=== PATIENT | female | born 1985 | race Caucasian/White ===

== ENCOUNTER 2020-06-13 22:13 | Emergency (ER) | payer SELFPAY ==
--- OUTSIDE RECORDS SUMMARY | 2020-06-13 22:14 | XMS REPORT | Continuity of Care Document ---
:1985 Author Organization [facility] t Address [address] [place] [address] Dr. Hong [address] [place] [id number] Care Team Providers Name Role Phone Unavailable Unavailable Unavailable Problems This patient has no known problems. Allergies, Adverse Reactions, Alerts This patient has no known allergies or adverse reactions. Medications This patient has no known medications. Procedures This patient has no known procedures. Results This patient has no known results.
--- NOTE | 2020-06-14 00:28 | ER ---
Nurse's Notes [facility] Name: Yana Syed Age: 35 yrs Sex: Female : 1985 Arrival Date: 06/13/2020 Time: 22:16 Bed 12 Private MD: Diagnosis: Right Distal Radius Fracture Presentation: 06/13 22:40 Chief complaint: Patient states: Reports falling on outstretched hands about 30 min lp1 ago; swelling to right wrist noted; denies any other injuries. Care prior to arrival: None. Mechanism of Injury: Fall from standing position. 22:40 Acuity: SHAHAB 4 lp1 22:40 Method Of Arrival: Ambulatory lp1 22:41 Coronavirus screen: Client denies travel out of the [place] in the last 14 days. At this lp1 time, the client does not indicate any symptoms associated with coronavirus-19. Ebola Screen: No symptoms or risks identified at this time. Initial Sepsis Screen: Does the patient meet any 2 criteria? No. Patient's initial sepsis screen is negative. Does the patient have a suspected source of infection? No. Patient's initial sepsis screen is negative. Risk Assessment: Do you want to hurt yourself or someone else? Patient reports no desire to harm self or others. Onset of symptoms was June 13, 2020 at 22:00. Triage Assessment: 22:43 General: Appears in no apparent distress. uncomfortable, Behavior is crying. Pain: lp1 Complains of pain in dorsal aspect of right wrist Pain currently is 9 out of 10 on a pain scale. Neuro: Level of Consciousness is awake, alert, obeys commands, Oriented to person, place, time, situation, Gait is steady. Cardiovascular: Patient's skin is warm and dry. Respiratory: Respiratory effort is even, unlabored. Derm: Skin is pink, warm \T\ dry. 22:44 General: Ice pack given to patient while in lobby. 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 - Social history:: Smoking status: Patient reports the use of cigarette tobacco products, smokes one-half pack cigarettes per day. Screenin:43 Abuse screen: Denies threats or abuse. Denies injuries from another. Nutritional lp1 screening: No deficits noted. Tuberculosis screening: No symptoms or risk factors identified. Fall Risk None identified. Assessment: 06/14 00:57 Reassessment: Patient is alert, oriented x 3, equal unlabored respirations, skin lp1 warm/dry/pink. SARA Leary at bedside to assess splint to right arm. Vital Signs: 06/13 22:41 BP 125 / 76; Pulse 105; Resp 18; Temp 99(TE); Pulse Ox 99% on R/A; Weight 63.5 kg (R); lp1 Height 5 ft. 0 in. (152.40 cm); Pain 9/10; 22:41 Body Mass Index 27.34 (63.50 kg, 152.40 cm) lp1 ED Course: 22:16 Patient arrived in ED. bp1 22:41 Triage completed. lp1 22:43 Arm band placed on. lp1 22:57 XRAY Wrist RIGHT 3 view In Process Unspecified. EDMS 23:15 Nicholas Brush PA is PHCP. cp 23:15 Ronny Jorgensen MD is Attending Physician. cp 06/14 00:16 Ilana Burch, RN is Primary Nurse. lp1 00:17 Jaya Godoy MD is Referral Physician. cp 00:55 Orthoglass splint: Sugar tong splint applied on right arm. oe 00:57 No provider procedures requiring assistance completed. Patient did not have IV access lp1 during this emergency room visit. 00:58 Sling applied to right arm. lp1 Administered Medications: 00:34 Drug: Hydrocodone-Acetaminophen (7.5 mg-325 mg) 1 tabs Route: PO; lp1 00:57 Follow up: Response: No adverse reaction lp1 00:34 Drug: Ibuprofen 800 mg Route: PO; lp1 00:57 Follow up: Response: No adverse reaction lp1 Outcome: 00:28 Discharge ordered by . cp 00:57 Discharged to home ambulatory, with friend. lp1 00:57 Condition: good 00:57 Discharge instructions given to patient, Instructed on discharge instructions, follow up and referral plans. medication usage, Demonstrated understanding of instructions, follow-up care, medications, splint care, Prescriptions given X 1. 00:58 Patient left the ED. lp1 Signatures: Dispatcher [employer] Ilana Martin RN RN lp1 Nicholas Brush PA PA cp Espinosa, Orlando oe [place]ia[place], Brittany bp1 Corrections: (The following items were deleted from the chart) 06/13 22:42 22:40 Chief complaint: Patient states: Reports falling on outstretched hands about 30 lp1 min ago; swelling to left wrist noted; denies any other injuries lp1
--- NOTE | 2020-06-14 00:28 | EDPHYS ---
Physician Documentation [facility] Name: Yana Syed Age: 35 yrs Sex: Female : 1985 Arrival Date: 06/13/2020 Time: 22:16 Bed 12 Private MD: ED Physician Ronny Jorgensen HPI: 06/13 23:20 This 35 yrs old Female presents to ER via Ambulatory with complaints of Fall cp Injury, Wrist Injury. 23:20 The patient or guardian reports decreased range of motion, injury, pain. The complaints cp affect the right wrist diffusely. 23:20 Context: resulted from a fall, off skateboard. Onset: The symptoms/episode cp began/occurred today. Modifying factors: the symptoms are aggravated by movement. Associated signs and symptoms: Pertinent positives: painful range of motion, Pertinent negatives: cyanosis distally, numbness distally. 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 - Social history:: Smoking status: Patient reports the use of cigarette tobacco products, smokes one-half pack cigarettes per day. ROS: 23:25 MS/extremity: Positive for deformity, pain, swelling, tenderness, of the right wrist, cp Negative for paresthesias. 23:25 Constitutional: Negative for fever. cp 23:25 Neck: Negative for pain with movement, pain at rest, stiffness. 23:25 Back: Negative for pain at rest, pain with movement. 23:25 Neuro: Negative for altered mental status, loss of consciousness. 23:25 All other systems are negative. Exam: 23:30 Constitutional: The patient appears in no acute distress, alert, awake, well developed, cp well nourished. 23:30 Head/Face: Normocephalic, atraumatic. cp 23:30 Cardiovascular: Rate: tachycardic. 23:30 Respiratory: the patient does not display signs of respiratory distress, Respirations: normal. 23:30 Musculoskeletal/extremity: Extremities: grossly normal except: noted in the dorsal aspect of right wrist: pain, swelling, tenderness, ROM: limited active range of motion due to pain, in the right wrist, limited passive range of motion due to pain, in the right wrist, Perfusion: the extremity is normally perfused throughout, Sensation intact. 23:30 Skin: injury, is not appreciated, intact with no open wounds to right wrist. Vital Signs: 22:41 BP 125 / 76; Pulse 105; Resp 18; Temp 99(TE); Pulse Ox 99% on R/A; Weight 63.5 kg (R); lp1 Height 5 ft. 0 in. (152.40 cm); Pain 9/10; 22:41 Body Mass Index 27.34 (63.50 kg, 152.40 cm) lp1 Procedures: 06/14 00:55 Splinting: Splint applied to right wrist using Orthoglass splint, sling, sugar tong cp type. applied by tech. Examined by me, post splint application: neurovascular intact, Patient tolerated well. MDM: 06/13 23:50 Patient medically screened. cp 06/14 00:00 Differential diagnosis: dislocation, open fracture, closed fracture, contusion, sprain. cp 00:27 Data reviewed: vital signs, nurses notes, radiologic studies, plain films, and as a cp result, I will discharge patient. 00:27 Test interpretation: by ED physician or midlevel provider: xrays of right wrist show cp nondisplaced distal right radius fracture. Counseling: I had a detailed discussion with the patient and/or guardian regarding: the historical points, exam findings, and any diagnostic results supporting the discharge/admit diagnosis, radiology results, the need for outpatient follow up, for definitive care, a orthopedic surgeon, to return to the emergency department if symptoms worsen or persist or if there are any questions or concerns that arise at home. Response to treatment: the patient's symptoms have markedly improved after treatment, and as a result, I will discharge patient. 00:35 ED course: review of [place] prescription monitor website: narcotic score 050, sedative cp score 020 and overdose risk score 120. 06/13 22:42 Order name: XRAY Wrist RIGHT 3 view lp1 06/13 23:15 Order name: Sugar Tong Forearm Splint; Complete Time: 00:58 cp 06/13 23:15 Order name: Sling; Complete Time: 00:58 cp Administered Medications: 00:34 Drug: Hydrocodone-Acetaminophen (7.5 mg-325 mg) 1 tabs Route: PO; lp1 00:57 Follow up: Response: No adverse reaction lp1 00:34 Drug: Ibuprofen 800 mg Route: PO; lp1 00:57 Follow up: Response: No adverse reaction lp1 Disposition: 01:00 Chart complete. cp 07:03 Co-signature as Attending Physician, Ronny Jorgensen MD. [email or web address] Disposition: 06/14/20 00:28 Discharged to Home. Impression: Right Distal Radius Fracture. - Condition is Stable. - Discharge Instructions: Wrist Fracture Treated With Immobilization. - Prescriptions for Tylenol- Codeine #3 300-30 mg Oral Tablet - take 2 tablets by ORAL route every 8-12 hours As needed; 20 tablet. - Medication Reconciliation Form, Thank You Letter, Antibiotic Education, Prescription Opioid Use form. - Follow up: Jaya Godoy MD; When: 2 - 3 days; Reason: Right Distal Radius Fracture. - Problem is new. - Symptoms have improved. Signatures: Dispatcher [employer] EDIlana Zafar RN RN 1 Nicholas Brush PA PA Ronny Chong MD MD 7 Corrections: (The following items were deleted from the chart) 00:58 00:28 06/14/2020 00:28 Discharged to Home. Impression: Right Distal Radius Fracture. lp1 Condition is Stable. Forms are Medication Reconciliation Form, Thank You Letter, Antibiotic Education, Prescription Opioid Use. Follow up: Jaya Godoy; When: 2 - 3 days; Reason: Right Distal Radius Fracture. Problem is new. Symptoms have improved. cp 19:56 06/13 23:20 The complaints affect the left wrist diffusely, cp cp
[2020-06-14] MEDS ORDERED: HYDROCODONE/APAP 7.5/325 MG TAB ONE (00:46)
[2020-06-14] MEDS ORDERED: IBUPROFEN 400 MG TAB ONE (00:47)
--- NOTE | 2020-06-14 09:23 | RAD REPORT ---
EXAM DESCRIPTION: RAD - Wrist Right 3 View - 06/13/2020 10:57 pm CLINICAL HISTORY: Pain;Swelling COMPARISON: No comparisons FINDINGS: Transverse fracture is seen in the distal radius, metaphyseal portion. No distraction or a ngulation deformity seen. No ulna fracture identified. There is no dislocation or periosteal reaction noted. No acute carpal bone injury. Soft tissue swelling is present primarily dorsum of the wrist. IMPRESSION: Transverse fracture distal right radius.
== END 2020-06-14 00:58 | disposition home or self-care (01) ==
LOC: ER 22:13
PROC: 2W3CX1Z Immobilization of Right Lower Arm using Splint (ICD-10-PCS; principal; 2020-06-14)
DX: S52.501A Unspecified fracture of the lower end of right radius, initial encounter for closed fracture (principal); V00.131A Fall from skateboard, initial encounter; Y93.9 Activity, unspecified; Y92.9 Unspecified place or not applicable; Z88.2 Allergy status to sulfonamides; F17.210 Nicotine dependence, cigarettes, uncomplicated
CPT/HCPCS: 99284

== ENCOUNTER 2023-12-05 15:06 | Emergency (ER) | payer SELFPAY ==
--- OUTSIDE RECORDS SUMMARY | 2023-12-05 15:15 | XMS REPORT | Continuity of Care Document ---
Author Name Unknown Address [address] [facility] [address] [place] [address] [facility] Address [address] [facility] [address] [place] [address] Care Team Providers Care World History Teacher Name Role Phone Willian KELLY, [facility] Primary Care Physician [phone] SYSTEM, PROVIDER NOT IN Attending Clinician Unav GHAZALA Sandoval Attending Clinician Unavailable GHAZALA ALEXANDER Attending Clinician Unavailable KADI GRIFFIN Attending Clinician UnavailKADI Mcclain Attending Clinician Unavaila NAINA Friedman Attending Clinician Unavailable ANGELES PANCHAL Attending Clinician ANGELES Rodriguez Attending Clinician Kathy Dejesus MD Attending Clinician [phone] KATHY SMITH Attending Clinician Unavailable Cinthia Castano MD Attending Clinician [phone] Unknown, Attending Attending Clinician UnavailCINTHIA Gustafson Attending Clinician Unavailable EMELY ARAUJO Attending Clinician Unavailable Emely Araujo MD Attending Clinician [phone] Doctor Unassigned, [place] Attending Clinician Fabio Irby MD Attending Clinician Darvin Yen MD Attending Clinician [phone] [facility] Attending Clinician Unavailable DARVIN YEN Attending Clinician Unavaila hoang Nurse, [facility] Attending Clinician Unavailable Pob, [facility] Main Attending Clinician UnavailKasi Patel PA-C Attending Clinician [phone] Pillo Singh MD Attending Clinician [phone] PILLO SINGH Attending Clinician Unavailable 2, [facility] Attending Clinician Unavailable Nakul Webster MD Attending Clinician [phone] KASI BOWSER Attending Clinician Unavailable RBADY GEE Attending Clinician UnavailKasandra Keller Attending Clinician [phone] KASANDRA BLACKMAN Attending Clinician Unavailable ANGELES PANCHAL Admitting Clinician EMELY Brewer Admitting Clinician Unavailable Emely Araujo MD Admitting Clinician [phone] KADI GRIFFIN Admitting Clinician Unavaila GHAZALA Turpin Admitting Clinician Unavailable Payers Payer Name Policy Type Policy Number Effective Date Expirati on Date Source [facility] MEDICAID [id number] 2020 00:00:00 [place] [id number] 2020 00:00:00 Problems Condition Name Condition Details Condition Category Status Onset Date Resolution Date Last Treatment Date Treating Clinician Comments Source Biliary colic Biliary colic Disease Active 9- 00:00: 00 [facility] Left ovarian cyst Left ovarian cyst Disease Active 9-13 00:00: 00 [facility] Lymphedema of genitalia Lymphedema of genitalia Disease Active 8- 00:00: 00 [facility] Exposure to syphilis Exposure to syphilis Disease Active 8-23 00:00: 00 [facility] Bacterial vaginal infection Bacterial vaginal infection Disease Active 4-11 00:00: 00 [facility] Urinary frequency Urinary frequency Disease Active 4-11 00:00: 00 [facility] Pain pelvic Pain pelvic Disease Active 3-20 00:00: 00 [facility] BMI 26.0-26.9, adult BMI 26.0-26.9, adult Disease Active 2023-0 1-20 00:00: 00 [facility] Abnormal urinalysis Abnormal urinalysis Disease Active 2021-05 0-27 00:00: 00 [facility] Dysuria Dysuria Disease Active 2021-05 0-27 00:00: 00 [facility] History of recurrent vaginal discharge History of recurrent vaginal discharge Disease Active 0 8-23 00:00: 00 [facility] Vaginal discharge Vaginal discharge Disease Active 0 5-02 00:00: 00 [facility] Antibiotic long-term use Antibiotic long-term use Disease Active 0 5-02 00:00: 00 [facility] Overweight (BMI 25.0-29.9) Overweight (BMI 25.0-29.9) Disease Active 0 5-02 00:00: 00 [facility] Screening for STD (sexually transmitte d disease) Screening for STD (sexually transmitte d disease) Disease Active 0 4-12 00:00: 00 [facility] Nexplanon in place Nexplanon in place Disease Active 2020-05 0-25 00:00: 00 [facility] Early syphilis, genital (primary) Early syphilis, genital (primary) Disease Active 8-05 00:00: 00 Overview: Formattin g of this note might be different from the original. on finger [facility] Skin lesion Skin lesion Disease Active 8-05 00:00: 00 Overview: Formattin g of this note might be different from the original. on finger [facility] Previous section Previous section Disease Active 6-29 00:00: 00 [facility] History of stillbirth History of stillbirth Disease Active 6-29 00:00: 00 [facility] Tobacco use disorder Tobacco use disorder Disease Active 6-29 00:00: 00 [facility] History of drug abuse History of drug abuse Disease Active 0 6-29 00:00: 00 [facility] History of anxiety History of anxiety Disease Active 6-29 00:00: 00 [facility] BMI 30.0-30.9, adult BMI 30.0-30.9, adult Disease Active 2014-05 0-14 00:00: 00 [facility] Allergies, Adverse Reactions, Alerts Allergy Name Allergy Type Status Severity Reaction(s) Onset Date Inactive Date Treating Clinician Comments Source Sulfa Antibiot ics - CLASS Propensi ty to adverse reaction to drug Active 05-30 00:00: 00 Guillaume Cabrera Sulfa (Sulfona mide Antibiot ics) Propensi ty to adverse reaction to drug Active 2 00:00: 00 Guillaume Sterling Rick SULFA (SULFONA MIDE ANTIBIOT ICS) Drug Class Active Hives 10-15 00:00: 00 [facility] Sulfa (Sulfona mide Antibiot ics) Propensi ty to adverse reaction s Active Hives 10-15 00:00: 00 [facility] Social History Social Habit Start Date Stop Date Quantity Comments Source History of tobacco use Cigarette Smoker [facility] Gender identity [facility] SDOH Alcohol Frequency [facility] History SDOH Alcohol Std Drinks [facility] History SDOH Alcohol Binge [facility] Alcoholic beverage intake 2023-11-09 00:00:00 2023-11-09 00:00:00 0 /d [facility] Alcohol intake 2023-09-22 00:00:00 2023-09-22 00:00:00 0 /d [facility] History of Social function 2023-03-28 00:00:00 2023-03-28 00:00:00 [facility] Cigarettes smoked current (pack per day) - Reported 2023-03-16 00:00:00 2023-03-16 00:00:00 [facility] Cigarette pack-years 2023-03-16 00:00:00 2023-03-16 00:00:00 [facility] Tobacco use and exposure 2023-03-16 00:00:00 2023-03-16 00:00:[address] [facility] Exposure to SARS-CoV-2 (event) 2022-08-27 00:00:00 2022-09-06 14:53:[address] [facility] Alcohol Comment 2020-11-24 00:00:00 2020-11-24 00:00:[address] [facility] Sex assigned at 1985 00:00:00 1985 00:00:00 [facility] Smoking Status Start Date Stop Date Source Smokes tobacco daily 2023-03-16 00:00:00 [facility] Medications Ordered Medication Name Filled Medication Name Start Date Stop Date Current Medication? Ordering Clinician Indication Dosage Frequency Signature (SIG) Comments Components Source Macrobid 100 mg capsule 11-20 00:00: 00 Yes 1mg Guillaume Cabrera fluconazole 150 mg tablet 11-10 00:00: 00 11-11 04:59 :00 Yes [id number] 150mg Take 1 tablet by mouth once now for 1 dose. [facility] bromphenira mine-pseudo ephedrine-D M 2 mg-30 mg-10 mg/5 mL oral syrup 10-02 00:00: 00 Yes 10mg/5 mL Guillaume Cabrera Augmentin 500 mg-125 mg tablet 10-01 00:00: 00 Yes 1mg Guillaume Cabrera Mucinex DM 30 mg-600 mg tablet,exte nded release 12 hr 10-01 00:00: 00 Yes 1mg Guillaume Cabrera diclofenac 1 % topical gel 00:00: 00 Yes % Guillaume Cabrera cyclobenzap rine 10 mg tablet 00:00: 00 Yes 1mg Guillaume Cabrera ibuprofen 800 mg tablet 00:00: 00 Yes 1mg Guillaume Cabrera FLUCONAZOLE 150MG 06-01 00:00: 00 Yes Guillaume Cabrera fluconazole (DIFLUCAN) 150 mg tablet 06-01 00:00: 00 06-02 05:59 :00 No [id number] 150mg Take 1 tablet by mouth once now for 1 dose. [facility] NITROFUR MON 100MG 2022-05 00:00: 00 Yes Guillaume Cabrera TAKE 1 CAPSULE TWICE DAILY. 2022-05 00:00: 00 10-02 00:00 :00 No 100 Guillaume Cabrera econazole nitrate 1 % cream 2022-05 00:00: 00 Yes [id number] Apply to area(s) daily. [facility] HYDROmorphO ne (DILAUDID) injection 0.4 mg 2022-05 18:49: 10 Yes .4mg 0.4 mg, Slow IV Push, Q15MIN PRN, 5 doses, Starting on Mon03/28/23 at 1349, Until Discontinu ed, Routine, Pain (scale 7-10), PACU
Us e approved by (Faculty): PACU USE -ANESTHESI A SERVICE-HY DROMORPHON E INJECTIONS [facility] FENTanyl PF (SUBLIMAZE (PF)) injection 25 mcg 2022-05 18:49: 10 Yes 25ug 25 mcg, Slow IV Push, Q5MIN PRN, 4 doses, Starting on Mon03/28/23 at 1349, Until Discontinu ed, Routine, Pain (scale 4-6), PACU [facility] ondansetron (ZOFRAN (PF)) injection 4 mg 2022-05 18:49: 10 Yes 4mg 4 mg, Slow IV Push, PRN, 1 dose, Starting on Mon03/28/23 at 1349, Until Discontinu ed, Routine, Nausea and Vomiting (N/V), PACU [facility] bupivacaine (preserv free) (SENSORCAIN E MPF) 0.25 % (2.5 mg/mL) 30 mL, lidocaine 1% (PF) (XYLOCAINE) 30 mL 2022-05 17:12: 00 03-28 19:01 :38 No PRN, Starting on Mon03/28/23 at 1212, Intra-op [facility] sodium chloride 0.9 % irrigation solution 2022-05 17:12: 00 03-28 19:01 :38 No PRN, Starting on Mon03/28/23 at 1212, Until Mon03/28/23 at 1401, Intra-op [facility] lactated ringers IV infusion 1,000 mL 2022-05 13:15: 00 03-28 13:16 :00 No 1000mL at 42 mL/hr, 1,000 mL, IV Infusion, ONCE, 1 dose, On Mon03/28/23 at 0815, Routine, DSU Pre-op [facility] traMADoL 50 mg tablet 2022-05 00:00: 00 04-05 05:59 :00 No [id number] 50mg Take 1 tablet by mouth every 8 (eight) hours as needed for Pain (scale 4-6) for up to 7 days. Indication s: acute pain [facility] TAKE ONE (1) TABLET(S) BY MOUTH EVERY MORNING. 2022-05 00:00: 00 Yes Guillaume Sterling Rick METRONIDAZO L 500MG 2022-05 00:00: 00 Yes [id number] Guillaume Hallie Cabrera fluconazole 200 mg tablet 2022-05 00:00: 00 Yes [id number] 200mg Take 1 tablet by mouth in the morning. [facility] metroNIDAZO LE 500 mg tablet 2022-05 00:00: 00 Yes [id number] 500mg Take 1 tablet by mouth every 12 (twelve) hours. [facility] omeprazole 20 mg capsule 02-04 00:00: 00 Yes TAKE ONE (1) CAPSULE(S) BY MOUTH EVERY MORNING. [facility] TAKE 1 CAPSULE EVERY MORNING. 02-02 00:00: 00 10-02 00:00 :00 No 20 Guillaume Cabrera METRONIDAZO L 500MG 11-16 00:00: 00 Yes Guillaume Cabrera metroNIDAZO LE 500 mg tablet 11-16 00:00: 00 11-24 04:59 :00 No [id number] 500mg Take 1 tablet by mouth every 12 (twelve) hours for 7 days. [facility] CIPROFLOXAC N 500MG 09-06 00:00: 00 Yes Guillaume Hallie Rick TERCONAZOL 3 80MG SUP 09-06 00:00: 00 Yes Guillaume Cabrera CLINDAMYCIN 2% VAG CRE 09-06 00:00: 00 Yes Guillaume Cabrera clindamycin 2 % cream 09-06 00:00: 00 09-14 04:59 :00 No [id number] 1{appli cator} Insert 1 Applicator into vagina at bedtime for 7 days. [facility] ciprofloxac in HCl (CIPRO) 500 mg tablet 09-06 00:00: 00 09-10 04:59 :00 No [id number] 500mg Take 1 tablet by mouth every 12 (twelve) hours for 3 days. [facility] terconazole 80 mg vaginal suppository 09-06 00:00: 00 09-10 04:59 :00 No [id number] 80mg Insert 1 Suppositor y into vagina at bedtime for 3 days. [facility] metroNIDAZO LE 500 mg tablet 08-15 00:00: 00 08-23 04:59 :00 No [id number] 500mg Take 1 tablet by mouth every 12 (twelve) hours for 7 days. [facility] penicillin g benzathine (BICILLIN L-A) injection 2.4 Million Units 06-27 16:15: 00 06-27 15:23 :00 No [id number] [address] [facility] METRONIDAZO L 500MG 06-17 00:00: 00 Yes [id number] Guillaume Cabrera metroNIDAZO LE 500 mg tablet 06-17 00:00: 00 06-25 05:59 :00 No [id number] 500mg Take 1 tablet by mouth every 12 (twelve) hours for 7 days. [facility] AZITHROMYCI N 250MG 05-30 00:00: 00 Yes [id number] Guillaume Cabrera TAKE FIVE (5) ML(S) BY MOUTH EVERY 4 TO 6 HOURS NEEDED. 05-30 00:00: 00 Yes Guillaume Cabrera DEXAMETHASO N 4MG 05-30 00:00: 00 Yes 4000 Guillaume Cabrera BENZONATATE 200MG 1-02 00:00: 00 Yes Guillaume Cabrera NITROFUR MON 100MG 2021-05 0- 00:00: 00 Yes Guillaume Cabrera FLUCONAZOLE 200MG 2021-05 0-27 00:00: 00 Yes Guillaume Cabrera fluconazole 200 mg tablet 2021-05 0- 00:00: 00 06-17 00:00 :00 No [id number] 200mg Take 1 tablet by mouth in the morning. [facility] Nitrofurant oin&Nit. Macrocryst (MACROBID) 100 mg capsule 2021-05 0 00:00: 00 04-01 04:59 :00 No [id number] 100mg Take 1 capsule by mouth in the morning and 1 capsule in the evening. Do all this for 7 days. [facility] CLEOCIN VAG 100MG OVU 02-15 00:00: 00 Yes Guillaume Cabrera metroNIDAZO LE 500 mg tablet 02-14 00:00: 00 06-17 00:00 :00 No [id number] 500mg Take 1 tablet by mouth every 12 (twelve) hours. [facility] clindamycin 100 mg vaginal suppository 02-14 00:00: 00 03-17 04:59 :00 No [id number] 100mg Insert 1 Suppositor y into vagina at bedtime for 30 days. [facility] HYDROXYZINE PAMOATE 25MG 8-18 00:00: 00 Yes Guillaume Cabrera PERMETHRIN 5% CRE 8-18 00:00: 00 Yes 5000 Guillaume Cabrera FLUCONAZOLE 150MG 8-18 00:00: 00 Yes Guillaume Cabrera VALACYCLOVI R HCL 1GM TAB 8-15 00:00: 00 Yes Guillaume Cabrera METRONIDAZO LE 500MG TAB 8-15 00:00: 00 Yes Guillaume Cabrera PREDNISONE 20MG 0 8-15 00:00: 00 Yes Guillaume Cabrera METRONIDAZO LE 500MG 7-12 00:00: 00 Yes Guillaume Cabrera FLUCONAZOLE 200MG - 00:00: 00 Yes Guillaume Cabrera fluconazole 200 mg tablet 12-06 00:00: 00 03-24 00:00 :00 No [id number] 200mg Take 1 tablet by mouth in the morning. [facility] fluconazole 200 mg tablet 09-27 00:00: 00 06-17 00:00 :00 No [id number] Take one tablet orally; daily for three days. May repeat 2 weeks following completion of antibiotic treatments . [facility] valACYclovi r (VALTREX) 1 gram tablet 09-07 00:00: 00 Yes [id number] Take one tablet by mouth daily [facility] ibuprofen 800 mg tablet 07-05 00:00: 00 06-17 00:00 :00 No [facility] amoxicillin 875 mg-marielos acosta clavulanate 125 mg tablet 09-24 00:00: 00 Yes 1mg Guillaume Cabrera ibuprofen 600 mg tablet 09-23 00:00: 00 Yes 1mg Guillaume Cabrera Bromfed DM 2 mg-30 mg-10 mg/5 mL oral syrup 09-23 00:00: 00 Yes 10mg/5 mL Guillaume Cabrera azithromyci n 250 mg tablet 2019-05 00:00: 00 Yes 12mg Guillaume Cabrera acyclovir 400 mg tablet 2019-05 00:00: 00 Yes 1mg Guillaume Cabrera nystatin 100,000 unit/mL oral suspension 2019-05 00:00: 00 Yes 10unit/ mL Guillaume Cabrera acyclovir 400 mg tablet 2019-05 0-05 00:00: 00 Yes 1mg Guillaume Cabrera triamcinolo ne acetonide 0.1 % dental paste 12-30 00:00: 00 Yes 1% Guillaume Cabrera prednisone 20 mg tablet 12-30 00:00: 00 Yes mg Guillaume Cabrera chlorhexidi ne gluconate 0.12 % mouthwash 12-30 00:00: 00 Yes 15% Guillaume Cabrera acyclovir 400 mg tablet 0 7-18 00:00: 00 Yes 1mg Guillaume Cabrera Macrobid 100 mg capsule 7-18 00:00: 00 Yes 1mg Guillaume Cabrera acyclovir 400 mg tablet 3-12 00:00: 00 Yes 1mg Guillaume Cabrera gabapentin 100 mg capsule 3-12 00:00: 00 Yes 1mg Guillaume Cabrera valacyclovi r 500 mg tablet 3-02 00:00: 00 Yes 2mg Guillaume Cabrera fluconazole 150 mg tablet 3-02 00:00: 00 Yes 2mg Guillaume Cabrera clindamycin HCl 300 mg capsule 3-02 00:00: 00 Yes 1mg Guillaume Cabrera metronidazo le 500 mg tablet 2-05 00:00: 00 Yes 1mg Guillaume Cabrera Tamiflu 75 mg capsule 1-10 00:00: 00 Yes 1mg Guillaume Cabrera Flagyl 500 mg tablet 1-03 00:00: 00 Yes 1mg Guillaume Cabrera Flagyl 500 mg tablet 2018-05 2-07 00:00: 00 Yes 1mg Guillaume Cabrera Valtrex 500 mg tablet 2-09 00:00: 00 Yes 1mg Guillaume Cabrera Immunizations Ordered Immunization Name Filled Immunization Name Date Status Comments Source TDAP 2015-07-23 00:00:[address] [facility] TDAP 2015-07-23 00:00:[address] [facility] TDAP 2015-07-23 00:00:[address] [facility] TDAP 2015-07-23 00:00:[address] [facility] TDAP 2015-07-23 00:00:[address] [facility] TDAP 2015-07-23 00:00:[address] [facility] TDAP 2015-07-23 00:00:[address] [facility] TDAP 2015-07-23 00:00:[address] [facility] TDAP 2015-07-23 00:00:[address] [facility] TDAP 2015-07-23 00:00:[address] [facility] TDAP 2015-07-23 00:00:[address] [facility] TDAP 2015-07-23 00:00:[address] [facility] TDAP 2015-07-23 00:00:[address] [facility] TDAP 2015-07-23 00:00:[address] [facility] TDAP 2015-07-23 00:00:[address] [facility] TDAP 2015-07-23 00:00:[address] [facility] TDAP 2015-07-23 00:00:[address] [facility] TDAP 2015-07-23 00:00:[address] [facility] TDAP 2015-07-23 00:00:[address] [facility] TDAP 2015-07-23 00:00:[address] [facility] TDAP 2015-07-23 00:00:[address] [facility] TDAP 2015-07-23 00:00:[address] [facility] TDAP 2015-07-23 00:00:[address] [facility] TDAP 2015-07-23 00:00:[address] [facility] TDAP 2015-07-23 00:00:[address] [facility] TDAP 2015-07-23 00:00:[address] [facility] TDAP 2015-07-23 00:00:[address] [facility] TDAP 2015-07-23 00:00:[address] [facility] TDAP 2015-07-23 00:00:[address] [facility] TDAP 2015-07-23 00:00:[address] [facility] TDAP 2015-07-23 00:00:[address] [facility] TDAP 2015-07-23 00:00:[address] [facility] TDAP 2015-07-23 00:00:[address] [facility] TDAP 2015-07-23 00:00:[address] [facility] TDAP 2015-07-23 00:00:[address] [facility] TDAP 2015-07-23 00:00:[address] [facility] TDAP 2015-07-23 00:00:[address] [facility] Td 2003-05-29 00:00:[address] [facility] Td 2003-05-29 00:00:[address] [facility] Td 2003-05-29 00:00:[address] [facility] Td 2003-05-29 00:00:[address] [facility] Td 2003-05-29 00:00:00 Completed [facility] TD, NOS 2003-05-29 00:00:00 Completed [facility] TD, NOS 2003-05-29 00:00:00 Completed [facility] TD, NOS 2003-05-29 00:00:[address] [facility] TD, NOS 2003-05-29 00:00:[address] [facility] TD, NOS 2003-05-29 00:00:[address] [facility] TD, NOS 2003-05-29 00:00:[address] [facility] TD, NOS 2003-05-29 00:00:[address] [facility] TD, NOS 2003-05-29 00:00:[address] [facility] TD, NOS 2003-05-29 00:00:[address] [facility] TD, NOS 2003-05-29 00:00:[address] [facility] TD, NOS 2003-05-29 00:00:[address] [facility] TD, NOS 2003-05-29 00:00:[address] [facility] TD, NOS 2003-05-29 00:00:00 Completed [facility] TD, NOS 2003-05-29 00:00:00 Completed [facility] TD, NOS 2003-05-29 00:00:00 Completed [facility] TD, NOS 2003-05-29 00:00:00 Completed [facility] TD, NOS 2003-05-29 00:00:00 Completed [facility] TD, NOS 2003-05-29 00:00:00 Completed [facility] TD, NOS 2003-05-29 00:00:[address] [facility] TD, NOS 2003-05-29 00:00:00 Completed [facility] TD, NOS 2003-05-29 00:00:00 Completed [facility] TD, NOS 2003-05-29 00:00:00 Completed [facility] TD, NOS 2003-05-29 00:00:00 Completed [facility] TD, NOS 2003-05-29 00:00:[address] [facility] TD, NOS 2003-05-29 00:00:[address] [facility] TD, NOS 2003-05-29 00:00:[address] [facility] TD, NOS 2003-05-29 00:00:[address] [facility] TD, NOS 2003-05-29 00:00:[address] [facility] TD, NOS 2003-05-29 00:00:[address] [facility] TD, NOS 2003-05-29 00:00:[address] [facility] TD, NOS 2003-05-29 00:00:[address] [facility] TD, NOS 2003-05-29 00:00:[address] [facility] TD, NOS Unknown Completed [facility] TDAP Unknown Completed [facility] TD, NOS Unknown Completed [facility] TDAP Unknown Completed [facility] TD, NOS Unknown Completed [facility] TDAP Unknown Completed [facility] TD, NOS Unknown Completed [facility] TDAP Unknown Completed [facility] TD, NOS Unknown Completed [facility] TDAP Unknown Completed [facility] TD, NOS Unknown Completed [facility] TDAP Unknown Completed [facility] TD, NOS Unknown Completed [facility] TDAP Unknown Completed [facility] TD, NOS Unknown Completed [facility] TDAP Unknown Completed [facility] TD, NOS Unknown Completed [facility] TDAP Unknown Completed [facility] TD, NOS Unknown Completed [facility] TDAP Unknown Completed [facility] TD, NOS Unknown Completed [facility] TDAP Unknown Completed [facility] TD, NOS Unknown Completed [facility] TDAP Unknown Completed [facility] TD, NOS Unknown Completed [facility] TDAP Unknown Completed [facility] TD, NOS Unknown Completed [facility] TDAP Unknown Completed [facility] TD, NOS Unknown Completed [facility] TDAP Unknown Completed [facility] TD, NOS Unknown Completed [facility] TDAP Unknown Completed [facility] TD, NOS Unknown Completed [facility] TDAP Unknown Completed [facility] TD, NOS Unknown Completed [facility] TDAP Unknown Completed [facility] TD, NOS Unknown Completed [facility] TDAP Unknown Completed [facility] TD, NOS Unknown Completed [facility] TDAP Unknown Completed [facility] TD, NOS Unknown Completed [facility] TDAP Unknown Completed [facility] TD, NOS Unknown Completed [facility] TDAP Unknown Completed [facility] TD, NOS Unknown Completed [facility] TDAP Unknown Completed [facility] TD, NOS Unknown Completed [facility] [facility] TDAP Unknown Completed [facility] TD, NOS Unknown Completed [facility] TDAP Unknown Completed [facility] TD, NOS Unknown Completed [facility] TDAP Unknown Completed [facility] TD, NOS Unknown Completed [facility] TDAP Unknown Completed [facility] TD, NOS Unknown Completed [facility] TDAP Unknown Completed [facility] TD, NOS Unknown Completed [facility] TDAP Unknown Completed [facility] TD, NOS Unknown Completed [facility] TDAP Unknown Completed [facility] TD, NOS Unknown Completed [facility] TDAP Unknown Completed [facility] Vital Signs Vital Name Observation Time Observation Value Comments S ource Systolic blood pressure 2023-11-09 18:36:00 117 mm[Hg] [facility] Diastolic blood pressure 2023-11-09 18:36:00 73 mm[Hg] [facility] Heart rate 2023-11-09 18:36:00 61 /min [facility] Body temperature 2023-11-09 18:36:[address] [facility] Respiratory rate 2023-11-09 18:36:00 18 /min [facility] Body height 2023-11-09 18:36:00 152.4 cm [facility] Body weight 2023-11-09 18:36:00 65.59 kg [facility] BMI 2023-11-09 18:36:00 28.24 kg/m2 [facility] Systolic blood pressure 2023-09-22 15:25:00 117 mm[Hg] [facility] Diastolic blood pressure 2023-09-22 15:25:00 82 mm[Hg] [facility] Heart rate 2023-09-22 15:25:00 62 /min Un[facility] Body temperature 2023-09-22 15:25:[address] [facility] Respiratory rate 2023-09-22 15:25:00 16 /min [facility] Body height 2023-09-22 15:25:00 152.4 cm [facility] Body weight 2023-09-22 15:25:00 66.044 kg [facility] BMI 2023-09-22 15:25:00 28.44 kg/m2 [facility] Oxygen saturation in Arterial blood by Pulse oximetry 2023-09-22 15:25:00 98 /min [facility] Systolic blood pressure 2023-05-30 15:28:00 124 mm[Hg] [facility] Diastolic blood pressure 2023-05-30 15:28:00 84 mm[Hg] [facility] Heart rate 2023-05-30 15:28:00 89 /min [facility] Body temperature 2023-05-30 15:28:[address] [facility] Respiratory rate 2023-05-30 15:28:00 18 /min [facility] Body weight 2023-05-30 15:28:00 61.236 kg [facility] BMI 2023-05-30 15:28:00 26.37 kg/m2 [facility] Systolic blood pressure 2023-04-16 16:41:00 110 mm[Hg] [facility] Diastolic blood pressure 2023-04-16 16:41:00 74 mm[Hg] [facility] Heart rate 2023-04-16 16:41:00 90 /min [facility] Body temperature 2023-04-16 16:41:[address] [facility] Respiratory rate 2023-04-16 16:41:00 18 /min [facility] Body height 2023-04-16 16:41:00 152.4 cm [facility] Body weight 2023-04-16 16:41:00 61.689 kg [facility] BMI 2023-04-16 16:41:00 26.56 kg/m2 [facility] Oxygen saturation in Arterial blood by Pulse oximetry 2023-04-16 16:41:00 100 /min [facility] Systolic blood pressure 2023 16:48:00 122 mm[Hg] [facility] Diastolic blood pressure 2023 16:48:00 80 mm[Hg] [facility] Heart rate 2023 16:48:00 86 /min [facility] Body temperature 2023 16:48:[address] [facility] Respiratory rate 2023 16:48:00 18 /min [facility] Body height 2023 16:48:00 152.4 cm [facility] Body weight 2023 16:48:00 61.689 kg [facility] BMI 2023 16:48:00 26.56 kg/m2 [facility] Oxygen saturation in Arterial blood by Pulse oximetry 2023 16:48:00 100 /min [facility] Systolic blood pressure 2023-03-28 19:36:00 118 mm[Hg] [facility] Diastolic blood pressure 2023-03-28 19:36:00 64 mm[Hg] [facility] Heart rate 2023-03-28 19:36:00 70 /min [facility] Respiratory rate 2023-03-28 19:36:00 12 /min [facility] Oxygen saturation in Arterial blood by Pulse oximetry 2023-03-28 19:36:00 98 /min [facility] Body temperature 2023-03-28 18:23:[address] [facility] Body height 2023-03-16 19:15:00 152.4 cm [facility] Body weight 2023-03-16 19:15:00 61.689 kg [facility] BMI 2023-03-16 19:15:00 26.56 kg/m2 [facility] Systolic blood pressure 2023-03-28 13:11:00 115 mm[Hg] [place] [facility] Diastolic blood pressure 2023-03-28 13:11:00 72 mm[Hg] [facility] Heart rate 2023-03-28 13:11:00 73 /min [facility] Body temperature 2023-03-28 13:11:[address] [facility] Respiratory rate 2023-03-28 13:11:00 17 /min [facility] Oxygen saturation in Arterial blood by Pulse oximetry 2023-03-28 13:11:00 100 /min [facility] Body height 2023-03-16 19:15:00 152.4 cm [facility] Body weight 2023-03-16 19:15:00 61.689 kg [facility] BMI 2023-03-16 19:15:00 26.56 kg/m2 [facility] Systolic blood pressure 2023-03-08 14:31:00 139 mm[Hg] [facility] Diastolic blood pressure 2023-03-08 14:31:00 85 mm[Hg] [facility] Heart rate 2023-03-08 14:31:00 64 /min Unive [facility] Respiratory rate 2023-03-08 14:31:00 18 /min [facility] Body height 2023-03-08 14:31:00 152.4 cm [facility] Body weight 2023-03-08 14:31:00 62.596 kg [facility] BMI 2023-03-08 14:31:00 26.95 kg/m2 [facility] Systolic blood pressure 2023-02-16 13:11:00 125 mm[Hg] [facility] Diastolic blood pressure 2023-02-16 13:11:00 79 mm[Hg] [facility] Heart rate 2023-02-16 13:11:00 77 /min [facility]ive [facility] Body temperature 2023-02-16 13:11:[address] [facility] Body height 2023-02-16 13:11:00 152.4 cm [facility] Body weight 2023-02-16 13:11:00 61.508 kg [facility] BMI 2023-02-16 13:11:00 26.48 kg/m2 [facility] Oxygen saturation in Arterial blood by Pulse oximetry 2023-02-16 13:11:00 100 /min [facility] Systolic blood pressure 2023-02-13 18:30:00 126 mm[Hg] [facility] Diastolic blood pressure 2023-02-13 18:30:00 88 mm[Hg] [facility] Heart rate 2023-02-13 18:30:00 81 /min [facility] Body temperature 2023-02-13 18:30:[address] [facility] Respiratory rate 2023-02-13 18:30:00 18 /min [facility] Body height 2023-02-13 18:30:00 152.4 cm [facility] Body weight 2023-02-13 18:30:00 62.188 kg [facility] BMI 2023-02-13 18:30:00 26.78 kg/m2 [facility] Oxygen saturation in Arterial blood by Pulse oximetry 2023-02-13 18:30:00 99 /min room air [facility] Systolic blood pressure 2023-02-07 15:40:00 131 mm[Hg] [facility] Diastolic blood pressure 2023-02-07 15:40:00 84 mm[Hg] [facility] Heart rate 2023-02-07 15:40:00 65 /min [facility] Body temperature 2023-02-07 15:40:[address] [facility] Respiratory rate 2023-02-07 15:40:00 16 /min [facility] Body height 2023-02-07 15:40:00 152.4 cm [facility] Body weight 2023-02-07 15:40:00 61.553 kg [facility] BMI 2023-02-07 15:40:00 26.50 kg/m2 [facility] Oxygen saturation in Arterial blood by Pulse oximetry 2023-02-07 15:40:00 100 /min [facility] Systolic blood pressure 2023-01-18 16:32:00 129 mm[Hg] [facility] Diastolic blood pressure 2023-01-18 16:32:00 84 mm[Hg] [facility] Heart rate 2023-01-18 16:32:00 69 /min Unive [facility] Body temperature 2023-01-18 16:32:[address] [facility] Respiratory rate 2023-01-18 16:32:00 18 /min [facility] Body height 2023-01-18 16:32:00 152.4 cm [facility] Body weight 2023-01-18 16:32:00 62.596 kg [facility] BMI 2023-01-18 16:32:00 26.95 kg/m2 [facility] Systolic blood pressure 2022-12-06 15:39:00 125 mm[Hg] [facility] Diastolic blood pressure 2022-12-06 15:39:00 85 mm[Hg] [facility] Heart rate 2022-12-06 15:39:00 77 /min Unive [facility] Body temperature 2022-12-06 15:39:[address] [facility] Respiratory rate 2022-12-06 15:39:00 16 /min [facility] Body height 2022-12-06 15:39:00 152.4 cm [facility] Body weight 2022-12-06 15:39:00 61.825 kg [facility] BMI 2022-12-06 15:39:00 26.62 kg/m2 [facility] Oxygen saturation in Arterial blood by Pulse oximetry 2022-12-06 15:39:00 99 /min [facility] Systolic blood pressure 2022-11-16 15:28:00 105 mm[Hg] [facility] Diastolic blood pressure 2022-11-16 15:28:00 73 mm[Hg] [facility] Heart rate 2022-11-16 15:28:00 87 /min [facility] 2022-11-16 15:28:00 18 /min [facility] Body height 2022-11-16 15:28:[address] [facility] Body weight 2022-11-16 15:28:00 61.236 kg [facility] BMI 2022-11-16 15:28:00 26.37 kg/m2 [facility] Res[facility] 2022-09-06 20:09:00 17 /min [facility] Body height 2022-09-06 20:09:[address] [facility] Body weight 2022-09-06 20:09:00 61.689 kg [facility] BMI 2022-09-06 20:09:00 26.56 kg/m2 [facility] Systolic blood pressure 2022-09-06 20:09:00 118 mm[Hg] [facility] Diastolic blood pressure 2022-09-06 20:09:00 83 mm[Hg] [facility] Heart rate 2022-09-06 20:09:00 64 /min Unive [facility] Body temperature 2022-09-06 20:09:[address] [facility] Systolic blood pressure 2022-08-15 13:04:00 115 mm[Hg] [facility] Diastolic blood pressure 2022-08-15 13:04:00 80 mm[Hg] [facility] Heart rate 2022-08-15 13:04:00 78 /min [facility] Respiratory rate 2022-08-15 13:04:00 18 /min [facility] Body height 2022-08-15 13:04:00 152.4 cm [facility] Body weight 2022-08-15 13:04:00 62.959 kg [facility] BMI 2022-08-15 13:04:00 27.11 kg/m2 [facility] Oxygen saturation in Arterial blood by Pulse oximetry 2022-08-15 13:04:00 98 /min [facility] Systolic blood pressure 2022-06-27 15:23:00 123 mm[Hg] [facility] Diastolic blood pressure 2022-06-27 15:23:00 79 mm[Hg] [facility] Heart rate 2022-06-27 15:23:00 92 /min Unive [facility] Body temperature 2022-06-27 15:23:[address] [facility] Respiratory rate 2022-06-27 15:23:00 18 /min [facility] Body height 2022-06-27 15:23:00 152.4 cm [facility] Body weight 2022-06-27 15:23:00 62.143 kg [facility] BMI 2022-06-27 15:23:00 26.76 kg/m2 [facility] Systolic blood pressure 2022-06-17 15:05:00 110 mm[Hg] [facility] Diastolic blood pressure 2022-06-17 15:05:00 78 mm[Hg] [facility] Heart rate 2022-06-17 15:05:00 73 /min Unive [facility] Body temperature 2022-06-17 15:05:[address] [facility] Respiratory rate 2022-06-17 15:05:00 16 /min [facility] Body height 2022-06-17 15:05:00 152.4 cm [facility] Body weight 2022-06-17 15:05:00 62.234 kg [facility] BMI 2022-06-17 15:05:00 26.80 kg/m2 [facility] Oxygen saturation in Arterial blood by Pulse oximetry 2022-06-17 15:05:00 100 /min [facility] Systolic blood pressure 2022-03-24 13:12:00 127 mm[Hg] [facility] Diastolic blood pressure 2022-03-24 13:12:00 85 mm[Hg] [facility] Heart rate 2022-03-24 13:12:00 74 /min Unive [facility] Respiratory rate 2022-03-24 13:12:00 18 /min [facility] Body height 2022-03-24 13:12:00 152.4 cm [facility] Body weight 2022-03-24 13:12:00 62.143 kg [facility] BMI 2022-03-24 13:12:00 26.76 kg/m2 [facility] BP Systolic 2023-11-21 09:12:00 117 mm[Hg] Step hen F Rick BP Diastolic 2023-11-21 09:12:00 83 mm[Hg] Andrae phen F Rick Weight Measured 2023-11-21 09:12:00 145.00 pounds Guillaume F Rick Height Measured 2023-11-21 09:12:00 60.00 inches Guillaume F Rick Body Temperature 2023-11-21 09:12:00 98.20 degrees Guillaume F Rick Heart Rate 2023-11-21 09:12:00 70.00 /min Kelsea en F Rick Respiratory Rate 2023-11-21 09:12:00 18.00 /min Guillaume F Rick BP Systolic 2023-09-29 13:39:00 116 mm[Hg] Step hen F Rick BP Diastolic 2023-09-29 13:39:00 84 mm[Hg] Andrae phen F Rick Weight Measured 2023-09-29 13:39:00 149.00 pounds Guillaume F Rick Height Measured 2023-09-29 13:39:00 60.00 inches Guillaume F Rick Body Temperature 2023-09-29 13:39:00 98.20 degrees Guillaume F Rick Heart Rate 2023-09-29 13:39:00 65.00 /min Kelsea en F Rick Respiratory Rate 2023-09-29 13:39:00 16.00 /min Guillaume F Rick BP Systolic 2023-08-24 10:00:00 118 mm[Hg] Step hen F Rick BP Diastolic 2023-08-24 10:00:00 83 mm[Hg] Andrae phen F Rick Weight Measured 2023-08-24 10:00:00 140.60 pounds Guillaume F Rick Height Measured 2023-08-24 10:00:00 60.00 inches Guillaume F Rick Body Temperature 2023-08-24 10:00:00 98.30 degrees Guillaume F Rick Heart Rate 2023-08-24 10:00:00 61.00 /min Kelsea en F Rick Respiratory Rate 2023-08-24 10:00:00 16.00 /min Guillaume F Rick BP Systolic 2023-07-27 10:55:00 116 mm[Hg] Step hen F Rick BP Diastolic 2023-07-27 10:55:00 70 mm[Hg] Andrae phen F Rick Weight Measured 2023-07-27 10:55:00 139.20 pounds Guillaume F Rick Height Measured 2023-07-27 10:55:00 60.00 inches Guillaume F Rick Body Temperature 2023-07-27 10:55:00 98.20 degrees Guillaume F Rick Heart Rate 2023-07-27 10:55:00 71.00 /min Kelsea en F Rick Respiratory Rate 2023-07-27 10:55:00 Guillaume F Rick BP Systolic 2023-05-08 10:34:00 108 mm[Hg] Step hen F Rick BP Diastolic 2023-05-08 10:34:00 76 mm[Hg] Andrae phen F Rick Weight Measured 2023-05-08 10:34:00 137.00 pounds Guillaume F Rick Height Measured 2023-05-08 10:34:00 60.00 inches Guillaume F Rick Body Temperature 2023-05-08 10:34:00 97.40 degrees Guillaume F Rick Heart Rate 2023-05-08 10:34:00 95.00 /min Kelsea en F Rick Respiratory Rate 2023-05-08 10:34:00 Guillaume F Rick BP Systolic 2023-04-25 13:39:00 119 mm[Hg] Step hen F Rick BP Diastolic 2023-04-25 13:39:00 79 mm[Hg] Andrae phen F Rick Weight Measured 2023-04-25 13:39:00 137.00 pounds Guillaume F Rick Height Measured 2023-04-25 13:39:00 50.00 inches Guillaume F Rick Body Temperature 2023-04-25 13:39:00 97.40 degrees Guillaume F Rick Heart Rate 2023-04-25 13:39:00 73.00 /min Kelsea en F Rick Respiratory Rate 2023-04-25 13:39:00 Guillaume F Rick BP Systolic 2023-02-09 09:31:00 117 mm[Hg] Step hen F Rick BP Diastolic 2023-02-09 09:31:00 78 mm[Hg] Andrae phen F Rick Weight Measured 2023-02-09 09:31:00 135.00 pounds Guillaume F Rick Height Measured 2023-02-09 09:31:00 50.00 inches Guillaume F Rick Body Temperature 2023-02-09 09:31:00 98.40 degrees Guillaume F Rick Heart Rate 2023-02-09 09:31:00 79.00 /min Kelsea en F Rick Respiratory Rate 2023-02-09 09:31:00 19.00 /min Guillaume F Rick BP Systolic 2023-02-02 09:54:00 103 mm[Hg] Step hen F Rick BP Diastolic 2023-02-02 09:54:00 71 mm[Hg] Andrae phen F Rick Weight Measured 2023-02-02 09:54:00 135.80 pounds Guillaume F Rick Height Measured 2023-02-02 09:54:00 50.00 inches Guillaume F Rick Body Temperature 2023-02-02 09:54:00 98.30 degrees Guillaume F Rick Heart Rate 2023-02-02 09:54:00 81.00 /min Kelsea en F Rick Respiratory Rate 2023-02-02 09:54:00 18.00 /min Guillaume F Rick BP Systolic 2022-11-14 10:51:00 117 mm[Hg] Step hen F Rick BP Diastolic 2022-11-14 10:51:00 87 mm[Hg] Andrae phen F Rick Weight Measured 2022-11-14 10:51:00 138.20 pounds Guillaume F Rick Height Measured 2022-11-14 10:51:00 50.00 inches Guillaume F Rick Body Temperature 2022-11-14 10:51:00 98.30 degrees Guillaume F Rick Heart Rate 2022-11-14 10:51:00 118.00 /min Step hen F Rick Respiratory Rate 2022-11-14 10:51:00 18.00 /min Guillaume F Rick BP Systolic 2022-01-13 09:07:00 104 mm[Hg] Step hen F Rick BP Diastolic 2022-01-13 09:07:00 69 mm[Hg] Andrae phen F Rick Weight Measured 2022-01-13 09:07:00 134.40 pounds Guillaume Cabrera Height Measured 2022-01-13 09:07:00 50.00 inches Guillaume Cabrera Body Temperature 2022-01-13 09:07:00 97.30 degrees Guillaume Cabrera Heart Rate 2022-01-13 09:07:00 74.00 /min Kelsea en F Rick Respiratory Rate 2022-01-13 09:07:00 Guillaumeselena Cabrera BP Systolic 2022-01-10 09:56:00 130 mm[Hg] Step hen F Rick BP Diastolic 2022-01-10 09:56:00 91 mm[Hg] Andrae phen F Rick Weight Measured 2022-01-10 09:56:00 134.00 pounds Guillaume Cabrera Height Measured 2022-01-10 09:56:00 50.00 inches Guillaume Cabrera Body Temperature 2022-01-10 09:56:00 98.00 degrees Guillaume Cabrera Heart Rate 2022-01-10 09:56:00 104.00 /min Step hen F Rick Respiratory Rate 2022-01-10 09:56:00 Guillaume Cabrera Procedures Procedure Date / Time Performed Performing Clinician Source POCT URINALYSIS W/O SPECIFIC GRAVITY 2023-11-09 00:00:[address] [facility] US PELVIS COMPLETE WITH TRANSVAGINAL 2023-06-07 15:32:[address] [facility] LAPAROSCOPIC CHOLECYSTECTOMY 2023-03-28 16:16:[address] [facility] POCT TEST 2023-03-28 13:03[facility] 2023-03-28 13:03:00 Itz Culp [facility] DAY SURGERY - ADC 2023-03-28 05:01:00 Doctor Kisha ssigned, [place] [facility] INSURANCE CORRESPONDENCE 2023-03-03 05:01:00 Doc tor Unassigned, [place] [facility] REFERRAL- REQUEST/RESPONSE 2023-03-03 05:01:00 Mahesh quezada Unassigned, [place] [facility] INSURANCE CORRESPONDENCE 2023-03-03 05:01:00 Doc tor Unassigned, [place] [facility] REFERRAL- REQUEST/RESPONSE 2023-03-03 05:01:00 Mahesh quezada Unassigned, [place] AUTHORIZATION TO RELEASE PHI TO [facility] 2023-02-16 05:01:00 Doctor Unassigned, [place] [facility] US PELVIS COMPLETE WITH TRANSVAGINAL 2023-02-03 15:45:[address] [facility] [id number] Ultrasound, Abdominal, Real Time With Image Documentation; Complete 2023-02-02 00:00:00 Guillaume Cabrera CBC (INCLUDES DIFF/PLT)-Q 2023-01-19 14:35:[address] [facility] POCT URINALYSIS W/O SPECIFIC GRAVITY 2023-01-18 00:00:[address] [facility] ASSIGNMENT OF BENEFITS 2022-11-16 15:14:54 Docto r Unassmarcelo, [place] [facility] POCT URINALYSIS W/O SPECIFIC GRAVITY 2022-11-16 00:00:[address] [facility] POCT URINALYSIS W/O SPECIFIC GRAVITY 2022-09-06 00:00:00 Kadi Griffin [facility] PATIENT FINANCIAL POLICY 2022-08-15 12:53:28 Doctor Unassigned, [place] [facility] POCT URINALYSIS W/O SPECIFIC GRAVITY 2022-03-24 00:00:[address] [facility] DISCLOSURE AND CONSENT, MEDICAL AND SURGICAL PROCEDURES 2022-02-07 05:01:00 Doctor Unassigned, [place] SCANNED LAB RESULTS 2022-01-18 05:01:00 Doctor Tisha salazar, [place] [facility] Encounters Start Date/Time End Date/Time Encounter Type Admission Type Attending Clinicians Care Facility Care Department Encounter ID Source 2021-03-29 11:59:39 Emergency [facility] [id number] [facility] 2021-03-05 15:00:41 Outpatient SYSTEM, PROVIDER YOVANI PINA [id number] MD Alida jean-baptiste 2023-12-15 08:30:00 2023-12-15 08:30:00 Outpatient R ALEXANDER GHAZALA ALEXANDER GHAZALA [facility] [id number] [facility] 2023-12-11 10:00:00 2023-12-11 10:00:00 Outpatient R KADI GRIFFINMIRAKADI FELTON [facility] [id number] [facility] 2023-12-11 10:00:00 2023-12-11 10:00:00 Outpatient R NAINA ANDERSON [facility] [id number] [facility] 2023-11-21 10:00:00 2023-11-21 10:00:00 Outpatient R ROMERO-CONCHITA S ANGELES ROMERO-CONCHITA SSUKHDEEPANGELES [facility] [id number] [facility] 2023-11-21 08:52:26 2023-11-21 08:52:26 Outpatient [facility] [id number] Guillaume Cabrera 2023-11-21 00:00:00 2023-11-21 00:00:00 Outpatient Visit [facility] [id number] Guillaume Cabrera 2023-11-11 00:00:00 2023-11-11 11:34:36 Case Management AleksKathy painting [facility] [id number] [facility] 2023-11-10 09:00:00 2023-11-10 09:00:00 Outpatient R NAINA ANDERSON [facility] [id number] [facility] 2023-11-09 13:30:00 2023-11-09 14:05:37 Outpatient R ADILENE KATHY [facility] [id number] [facility] 2023-11-09 13:30:00 2023-11-09 14:05:37 Office Visit AleksKathy painting [place] [id number] [facility] 2023-09-29 13:39:08 2023-09-29 13:39:08 Outpatient [facility] [id number] Guillaume Cabrera 2023-09-29 00:00:00 2023-09-29 00:00:00 Outpatient Visit [facility] [id number] Guillaume Cabrera 2023-09-22 14:00:00 2023-09-22 14:00:00 Office Visit Ghazala Alexander [facility] [id number] 134 [id number] [facility] 2023-09-22 14:00:00 2023-09-22 11:59:47 Outpatient R GHAZALA ALEXANDER [facility] [id number] [facility] 2023-08-24 09:50:56 2023-08-24 09:50:56 Outpatient [facility] [id number] Guillaume Cabrera 2023-07-27 10:52:32 2023-07-27 10:52:32 Outpatient [facility] [id number] Guillaume Cabrera 2023-06-07 09:01:06 2023-06-07 23:59:00 Outpatient R ANGELES JOHANSEN MARISOL [facility] [id number] [facility] 2023-06-07 09:01:06 2023-06-07 23:59:00 Hospital Encounter Angeles Johansen [facility] [id number] [facility] 2023-06-01 00:00:00 2023-06-01 00:00:00 Case Management Angeles Johansen [facility] [id number] 134 [id number] [facility] 2023-05-30 09:30:00 2023-05-30 09:38:55 Outpatient R LICO Anthony, ANGELES SUKHDEEP JOHANSENSOL [facility] [id number] [facility] 2023-05-30 09:30:00 2023-05-30 09:38:55 Office Visit Sukhdeep Johansensol [facility] 1.2840.114 350.1.13.10 4.2.7.2.686 [id number] 134 [id number] [facility] 2023-05-30 00:00:00 2023-05-30 00:00:[address] [facility] 1.0.114 350.1.13.10 4.2.7.2.686 [id number] 134 [id number] [facility] 2023-05-08 10:27:03 2023-05-08 10:27:03 Outpatient [facility] [id number] Guillaume Sterling Rick 2023-05-04 00:00:00 2023-05-04 00:00:[address] [facility] 1.2840.114 350.1.13.10 4.2.7.2.686 [id number] 134 [id number] [facility] 2023-04-25 13:34:12 2023-04-25 13:34:12 Outpatient [facility] [id number] Guillaume F Rick 2023-04-16 10:20:00 2023-04-16 10:40:00 Urgent Care Cinthia Castano Unknown, Attending [facility] DEBORAH JUAREZ?[facility] 1.2840.114 350.1.13.10 4.2.7.2.686 [id number] [facility] 2023-04-16 10:20:00 2023-04-16 10:20:00 Outpatient R CINTHIA CASTANO [facility] [id number] [facility] 2023 10:45:00 2023 12:31:24 Outpatient R EMELY ARAUJO [facility] [id number] [facility] 2023 10:45:00 2023 12:31:24 Office Visit Emely Araujo [facility] 1.840.114 350.1.13.10 4.2.7.2.686 [id number] [facility] 2023-03-28 08:01:00 2023-03-28 14:49:00 Outpatient R EMELY ARAUJO [facility] [id number] [facility] 2023-03-28 08:01:00 2023-03-28 14:49:00 Hospital Encounter Emely Araujo [facility] [place] 1.840.114 350.1.13.10 4.2.7.2.686 [id number] [facility] 2023-03-28 09:45:00 2023-03-28 12:30:00 Surgery Emely Araujo [facility] [place] 1.2840.114 350.1.13.10 4.2.7.2.686 [id number] [facility] 2023-03-28 00:00:00 2023-03-28 00:00:00 Orders Only Doctor Unassigned, [place] [facility] 1.2840.114 350.1.13.10 4.2.7.2.686 [id number] [id number] [facility] 2023-03-08 09:30:00 2023-03-08 09:38:07 Outpatient R KADI GRIFFIN CHERYAL [facility] [id number] [facility] 2023-03-08 09:30:00 2023-03-08 09:38:07 Office Visit Kadi Griffin [facility] 1.2840.114 350.1.13.10 4.2.7.2.686 [id number] 134 [id number] [facility] 2023-03-02 00:00:00 2023-03-02 00:00:00 Telephone Emely Araujo [facility] 1.2840.114 350.1.13.10 4.2.7.2.686 [id number] [facility] 2023-02-21 00:00:00 2023-02-21 00:00:00 Telephone Emely Araujo [facility] 1.2.114 350.1.13.10 4.2.7.2.686 [id number] [facility] 2023-02-16 08:30:00 2023-02-16 08:59:38 Outpatient R EMELY ARAUJO [facility] [id number] [facility] 2023-02-16 08:30:00 2023-02-16 08:59:38 Office Visit Emely Araujo [facility] 1.20.114 350.1.13.10 4.2.7.2.686 [id number] [facility] 2023-02-16 00:00:00 2023-02-16 00:00:00 Orders Only Doctor Unassigned, [place] [facility] 1.2840.114 350.1.13.10 4.2.7.2.686 [id number] [id number] [facility] 2023-02-14 00:00:00 2023-02-14 00:00:00 Patient Secure Msg LarsFabio [facility] 1.2.840.114 350.1.13.10 4.2.7.2.686 [id number] [facility] 2023-02-13 14:00:00 2023-02-13 15:00:00 Office Visit Fabio Sousa [facility] 1.2.840.114 350.1.13.10 4.2.7.2.686 [id number] 089 [id number] [facility] 2023-02-13 12:45:00 2023-02-13 13:00:00 Medical Billing Supervisor Visit [facility] Farshad [facility] 1.2.840.114 350.1.13.10 4.2.7.2.686 [id number] [facility] 2023-02-13 12:45:00 2023-02-13 12:45:00 Outpatient R DARVIN YEN [facility] [id number] [facility] 2023-02-07 10:45:00 2023-02-07 10:48:30 Outpatient R KADI GRIFFIN CHERYAL [facility] [id number] [facility] 2023-02-07 10:45:00 2023-02-07 10:48:30 Office Visit Kadi Griffin [facility] 1.2840.114 350.1.13.10 4.2.7.2.686 [id number] 134 [id number] [facility] 2023-02-03 09:38:22 2023-02-03 23:59:00 Outpatient R KADI GRIFFIN CHERYAL [facility] [id number] [facility] 2023-02-03 09:38:22 2023-02-03 23:59:00 Hospital Encounter Tritschler, [facility] 1.2.840.114 350.1.13.10 4.2.7.2.686 [id number] [facility] 2023-02-02 15:00:43 2023-02-02 15:00:43 Outpatient [facility] [id number] Guillaume Cabrera 2023-01-24 16:30:00 2023-01-24 16:30:00 Out[facility] [id number] [facility] 2023-01-23 00:00:00 2023-01-23 00:00:00 [facility] 1.2.840.114 350.1.13.10 4.2.7.2.686 [id number] 134 [id number] [facility] 2023-01-20 00:00:00 2023-01-20 00:00:00 [facility] 1.2.840.114 350.1.13.10 4.2.7.2.686 [id number] 134 [id number] [facility] 2023-01-20 00:00:00 2023-01-20 00:00:00 [facility] 1.2.840.114 350.1.13.10 4.2.7.2.686 [id number] 134 [id number] [facility] 2023-01-19 00:00:00 2023-01-19 00:00:00 Orders Only [facility] 1.2.840.114 350.1.13.10 4.2.7.2.686 [id number] [facility] 2023-01-18 11:30:00 2023-01-18 11:46:37 Outpatient R KADI [facility]RIFFIN [facility] [id number] [facility] 2023-01-18 11:30:00 2023-01-18 11:46:37 [facility] 1.2.840.114 350.1.13.10 4.2.7.2.686 [id number] 134 [id number] [facility] 2022-12-06 11:00:00 2022-12-06 11:00:00 [facility] 1.2.840.114 350.1.13.10 4.2.7.2.686 [id number] 134 [id number] [facility] 2022-12-06 11:00:00 2022-12-06 10:57:28 Outpatient R KARLIKADI WELSH KARLIIZABELLAKAMILAHKADI FELTON [facility] [id number] [facility] 2022-11-16 10:30:00 2022-11-16 10:35:13 Outpatient R KARLIKADI WELSH KARLIIZABELLAKAMILAHKADI FELTON [facility] [id number] [facility] 2022-11-16 10:30:00 2022-11-16 10:35:13 [facility] 1.2.840.114 350.1.13.10 4.2.7.2.686 [id number] 134 [id number] [facility] 2022-11-16 00:00:00 2022-11-16 00:00:00 Orders Only Doctor Unassigned, [place] [facility] 1.2.840.114 350.1.13.10 4.2.7.2.686 [id number] [facility] 2022-11-15 00:00:00 2022-11-15 00:00:00 [facility] 1.2.840.114 350.1.13.10 4.2.7.2.686 [id number] 134 [id number] [facility] 2022-11-14 10:46:55 2022-11-14 10:46:55 Outpatient [facility] [id number] Guillaume Cabrera 2022-09-08 08:00:00 2022-09-08 08:00:00 Outpatient R KADI GRIFFIN CHERYAL [facility] [id number] [facility] 2022-09-06 15:00:00 2022-09-06 15:16:27 Outpatient R KADI GRIFFIN CHERYAL [facility] [id number] [facility] 2022-09-06 15:00:00 2022-09-06 15:16:27 Office Visit KarliKadi welsh [facility] 1..114 350.1.13.10 4.2.7.2.686 [id number] 134 [id number] [facility] 2022-08-15 08:00:00 2022-08-15 08:18:24 Outpatient R KADI GRIFFIN CH[facility] [id number] [facility] 2022-08-15 08:00:00 2022-08-15 08:18:24 [facility] 1..114 350.1.13.10 4.2.7.2.686 [id number] 134 [id number] [facility] 2022-08-15 00:00:00 2022-08-15 00:00:00 Orders Only Doctor Unassigned, [place] [facility] 1..114 350.1.13.10 4.2.7.2.686 [id number] [facility] 2022-07-01 00:00:00 2022-07-01 00:00:00 Patient Secure Msg Doctor Unassigned, [place] [facility] 1.2.840.114 350.1.13.10 4.2.7.2.686 [id number] [facility] 2022-06-27 09:00:00 2022-06-27 09:34:47 Nurse Visit Nurse, [facility] 1.2840.114 350.1.13.10 4.2.7.2.686 [id number] 134 [id number] [facility] 2022-06-27 09:00:00 2022-06-27 09:00:00 Out[facility] [id number] [facility] 2022-06-27 00:00:00 2022-06-27 00:00:00 [facility] 1.840.114 350.1.13.10 4.2.7.2.686 [id number] 134 [id number] [facility] 2022-06-22 00:00:00 2022-06-22 00:00:00 [facility]phone [facility] 1.2840.114 350.1.13.10 4.2.7.2.686 [id number] 134 [id number] [facility] 2022-06-22 00:00:00 2022-06-22 00:00:00 Patient Secure Msg Doctor Unassigned, [place] [facility] 1.2840.114 350.1.13.10 4.2.7.2.686 [id number] 134 [id number] [facility] 2022-06-21 11:45:00 2022-06-21 12:00:00 Medical Billing Supervisor Visit Pob, Adc Lab Main Karliizabellakena [facility] 1.2840.114 350.1.13.10 4.2.7.2.686 [id number] [facility] 2022-06-21 11:45:00 2022-06-21 11:45:00 Outpatient R KADI GRIFFIN CHERY[facility] [id number] [facility] 2022-06-17 09:00:00 2022-06-17 09:25:31 Outpatient R KADI GRIFFIN [facility] [id number] [facility] 2022-06-17 09:00:00 2022-06-17 09:25:31 [facility] 1.2.840.114 350.1.13.10 4.2.7.2.686 [id number] 134 [id number] [facility] 2022-05-31 09:04:49 2022-05-31 09:04:49 Outpatient [facility] [id number] Guillaume Cabrera 2022-03-24 08:00:00 2022-03-24 08:17:26 Outpatient R KADI GRIFFIN CHERYAL [facility] [id number] [facility] 2022-03-24 08:00:00 2022-03-24 08:17:26 Office Visit Kadi Griffin [facility] 1.2.840.114 350.1.13.10 4.2.7.2.686 [id number] 134 [id number] [facility] 2022-03-22 09:00:00 2022-03-22 09:00:00 Outpatient R KADI GRIFFIN CHERYAL [facility] [id number] [facility] 2022-03-02 11:00:00 2022-03-02 11:00:00 Outpatient R KADI GRIFFINKAMILAHKADI FELTON [facility] [id number] [facility] 2022-02-22 00:00:00 2022-02-22 00:00:00 Patient Secure Ghazala Bermudez [facility] 1..840.114 350.1.13.10 4.2.7.2.686 [id number] 134 [id number] [facility] 2022-02-14 00:00:00 2022-02-14 00:00:00 Case Management Kasi Bowser [facility] 1.2840.114 350.1.13.10 4.2.7.2.686 [id number] 134 [id number] [facility] 2022-02-07 09:00:00 2022-02-07 09:51:26 Outpatient R BENJAMIN GHAZALA [facility] [id number] [facility] 2022-02-07 09:00:00 2022-02-07 09:51:26 Office Visit Ghazala Alexander [facility] 1.2840.114 350.1.13.10 4.2.7.2.686 [id number] 134 [id number] [facility] 2022-02-07 09:00:00 2022-02-07 09:51:26 Outpatient R BENJAMIN GHAZALA [facility] [id number] [facility] 2022-02-07 00:00:00 2022-02-07 00:00:00 Orders Only Doctor Unassigned, [place] [facility] 1.84.114 350.1.13.10 4.2.7.2.686 [id number] [id number] [facility] 2022-02-03 00:00:00 2022-02-03 00:00:00 Telephone TriKadi welsh [facility] 1.2114 350.1.13.10 4.2.7.2.686 [id number] 134 [id number] [facility] 2022-02-02 00:00:00 2022-02-02 00:00:00 Telephone TriKadi welsh [facility] 1.2.840.114 350.1.13.10 4.2.7.2.686 [id number] 134 [id number] [facility] 2022-01-28 00:00:00 2022-01-28 00:00:00 Telephone Kadi Griffin [facility] 1.2.840.114 350.1.13.10 4.2.7.2.686 [id number] 134 [id number] [facility] 2022-01-18 09:30:00 2022-01-18 10:00:00 Office Visit Gaby [facility] 1.2.840.114 350.1.13.10 4.2.7.2.686 [id number] 134 [id number] [facility] 2022-01-18 09:30:00 2022-01-18 09:30:00 Outpatient R BUCKYPURNIMA KADI [facility] [id number] [facility] 2022-01-18 00:00:00 2022-01-18 00:00:00 Orders Only Doctor Unassigned, [place] [facility] 1.2.840.114 350.1.13.10 4.2.7.2.686 [id number] [id number] [facility] 2021-12-31 00:00:00 2021-12-31 00:00:00 Case Management Karlianitha [facility] 1.2.840.114 350.1.13.10 4.2.7.2.686 [id number] 134 [id number] [facility] 2021-12-29 11:30:00 2021-12-29 12:09:14 [facility] 1.2.840.114 350.1.13.10 4.2.7.2.686 [id number] 134 [id number] [facility] 2021-12-29 11:30:00 2021-12-29 12:09:14 Outpatient R KADI GRIFFIN CHERYAL [facility] [id number] [facility] 2021-12-29 11:30:00 2021-12-29 11:30:00 Outpatient R KADI GRIFFIN CHERYAL [facility] [id number] [facility] 2021-12-07 00:00:00 2021-12-07 00:00:00 Case Management KarliKadi welsh [facility] 1.84.114 350.1.13.10 4.2.7.2.686 [id number] 134 [id number] [facility] 2021-12-06 11:00:00 2021-12-06 11:24:28 Office Visit BuckyKadi felton [facility] 1..114 350.1.13.10 4.2.7.2.686 [id number] 134 [id number] [facility] 2021-12-06 11:00:00 2021-12-06 11:24:28 Outpatient R KADI GRIFFIN CHERYAL [facility] [id number] [facility] 2021-12-06 11:00:00 2021-12-06 11:00:00 Outpatient R KADI GRIFFIN [facility] [id number] [facility] 2021-12-01 09:15:00 2021-12-01 09:15:00 Outpatient R KARLIKADI WELSH [facility] [id number] [facility] 2021-11-18 10:00:00 2021-11-18 10:15:00 Nurse Visit Nurse, Francisco [facility] Pillo Singh [facility] 1..840.114 350.1.13.10 4.2.7.2.686 [id number] 134 [id number] [facility] 2021-11-18 10:00:00 2021-11-18 10:00:00 Outpatient PILLO BOLDEN [facility] [id number] [facility] 2021-11-11 10:00:00 2021-11-11 10:28:47 Nurse Visit Nurse, [facility] 1.840.114 350.1.13.10 4.2.7.2.686 [id number] 134 [id number] [facility] 2021-11-11 10:00:00 2021-11-11 10:00:00 Outpatient Ananth SINGH PILLO [facility] [id number] [facility] 2021-11-05 11:00:00 2021-11-05 16:37:32 Nurse Visit Nurse, [facility] 1.84.114 350.1.13.10 4.2.7.2.686 [id number] 134 [id number] [facility] 2021-11-05 11:00:00 2021-11-05 11:00:00 Out[facility] [id number] [facility] 2021-11-03 00:00:00 2021-11-03 00:00:00 Telephone Karliizabellakena [facility] 1..114 350.1.13.10 4.2.7.2.686 [id number] 134 [id number] [facility] 2021-11-02 10:45:00 2021-11-02 11:00:00 Medical Billing Supervisor Visit Pob, Adc Lab Main [facility] 1.84.114 350.1.13.10 4.2.7.2.686 [id number] [facility] 2021-11-02 10:45:00 2021-11-02 10:45:00 Outpatient R KADI GRIFFIN CHERYAL [facility] [id number] [facility] 2021-11-02 10:45:00 2021-11-02 10:45:00 Outpatient R KADI GRIFFIN CHERY[facility] [id number] [facility] 2021-10-12 11:30:00 2021-10-12 11:43:00 Office Visit Karlianitha [facility] 1..114 350.1.13.10 4.2.7.2.686 [id number] 134 [id number] [facility] 2021-10-12 11:30:00 2021-10-12 11:43:00 Outpatient R KADI GRIFFIN [facility] [id number] [facility] 2021-10-12 11:30:00 2021-10-12 11:30:00 Outpatient R KADI GRIFFIN [facility] [id number] [facility] 2021-10-07 00:00:00 2021-10-07 00:00:00 Refill Karlianitha [facility] 1..114 350.1.13.10 4.2.7.2.686 [id number] 134 [id number] [facility] 2021-09-29 10:30:00 2021-09-29 10:45:00 Nurse Visit Nurse, aron [facility] Ghazala [facility] 1.20.114 350.1.13.10 4.2.7.2.686 [id number] 134 [id number] [facility] 2021-09-29 10:30:00 2021-09-29 10:30:00 Outpatient R [facility] [id number] [facility] 2021-09-29 10:30:00 2021-09-29 10:30:00 Outpatient R GHAZALA ALEXANDER [facility] [id number] [facility] 2021-09-27 10:30:00 2021-09-27 10:54:36 [facility] 1.2840.114 350.1.13.10 4.2.7.2.686 [id number] 134 [id number] [facility] 2021-09-27 10:30:00 2021-09-27 10:54:36 Outpatient R GABY CYDNEYREJI [facility] [id number] [facility] 2021-09-27 10:30:00 2021-09-27 10:30:00 Outpatient R KADI [facility]RIFFIN [facility] [id number] [facility] 2021-09-22 11:15:00 2021-09-22 11:36:50 Nurse Visit Nurse, Francisco [facility] 1.20.114 350.1.13.10 4.2.7.2.686 [id number] 134 [id number] [facility] 2021-09-22 11:15:00 2021-09-22 11:15:00 Outpatient GHAZALA PIERRE [facility] [id number] [facility] 2021-09-15 11:45:00 2021-09-15 12:00:00 Nurse Visit Nurse, Francisco [facility] 1.20.114 350.1.13.10 4.2.7.2.686 [id number] 134 [id number] [facility] 2021-09-15 11:45:00 2021-09-15 11:45:00 Outpatient R GHAZALA ALEXANDER [facility] [id number] [facility] 2021-09-09 00:00:00 2021-09-09 00:00:[address] [facility] 1.2.840.114 350.1.13.10 4.2.7.2.686 [id number] 134 [id number] [facility] 2021-09-07 14:30:00 2021-09-07 14:45:00 Medical Billing Supervisor Visit Pob, Adc Lab Main [facility]illo [facility] 1.2.840.114 350.1.13.10 4.2.7.2.686 [id number] [facility] 2021-09-07 14:30:00 2021-09-07 14:45:00 Medical Billing Supervisor Visit Po, Adc Lab Main Francisco Pillo [facility] 1.2.840.114 350.1.13.10 4.2.7.2.686 [id number] [facility] 2021-09-07 14:30:00 2021-09-07 14:30:00 Outpatient R PILLO SINGH [facility] [id number] [facility] 2021-09-07 14:30:00 2021-09-07 14:30:00 Outpatient R PILLO SINGH [facility] [id number] [facility] 2021-09-07 13:00:00 2021-09-07 13:30:00 Office Visit Buckypurnima Kadi [facility] 1.2840.114 350.1.13.10 4.2.7.2.686 [id number] 134 [id number] [facility] 2021-09-07 13:00:00 2021-09-07 13:00:00 Outpatient R KADI GRIFFIN CHERYAL [facility] [id number] [facility] 2021-09-07 13:00:00 2021-09-07 13:00:00 Outpatient R KARLIIZABELLAKAMILAHKADI FELTON BUCKYKADI FELTON [facility] [id number] [facility] 2021-09-06 00:00:00 2021-09-06 00:00:00 Telephone Ghazala Alexander [facility] 1..840.114 350.1.13.10 4.2.7.2.686 [id number] 134 [id number] [facility] 2021-04-01 10:58:51 2021-04-01 23:59:00 Outpatient R GHAZALA ALEXANDER [facility] [id number] [facility] 2021-04-01 10:58:51 2021-04-01 23:59:00 Hospital Encounter Ghazala Alexander [facility] 1..840.114 350.1.13.10 4.2.7.2.686 [id number] [facility] 2021-04-01 00:00:00 2021-04-01 00:00:00 Orders Only Doctor Unassigned, [place] [facility] 1.2840.114 350.1.13.10 4.2.7.2.686 [id number] [facility] 2021-03-30 00:00:00 2021-03-30 00:00:00 Case Management Ghazala Alexander [facility] 1..840.114 350.1.13.10 4.2.7.2.686 [id number] 134 [id number] [facility] 2021-03-25 10:15:00 2021-03-25 10:53:38 Outpatient R ALEXANDERBRETEN [facility] [id number] [facility] 2021-03-25 10:15:00 2021-03-25 10:53:38 Outpatient R BENJAMIN [facility] [id number] [facility] 2021-03-25 10:13:40 2021-03-25 10:53:38 Office Visit Ghazala Alexander [facility] 1.2.840.114 350.1.13.10 4.2.7.2.686 [id number] 134 [id number] [facility] 2021-03-25 00:00:00 2021-03-25 00:00:00 Orders Only Doctor Unassigned, [place] [facility] 1.2840.114 350.1.13.10 4.2.7.2.686 [id number] [facility] 2021-03-22 08:58:05 2021-03-22 09:28:05 Office Visit Ghazala Alexander [facility] 1.2.840.114 350.1.13.10 4.2.7.2.686 [id number] [facility] 2021-03-22 09:00:00 2021-03-22 09:00:00 Outpatient R GHAZALA ALEXANDER [facility] [id number] [facility] 2021-03-18 09:40:39 2021-03-18 10:16:54 Office Visit Ghazala Alexander [facility] Building 1.2.840.114 350.1.13.10 4.2.7.2.686 [id number] [facility] 2021-03-18 09:30:00 2021-03-18 09:30:00 Outpatient R GHAZALA ALEXANDER [facility] [id number] [facility] 2021-03-17 09:02:23 2021-03-17 09:17:23 Medical Billing Supervisor Visit 2, Adc [facility] Ghazala Alexander [facility] Building 1.2.840.114 350.1.13.10 4.2.7.2.686 [id number] [facility] 2021-03-17 09:00:00 2021-03-17 09:00:00 Outpatient R [facility] [id number] [facility] 2021-03-17 00:00:00 2021-03-17 00:00:00 Case Management Ghazala Alexander [facility] Building 1.2.840.114 350.1.13.10 4.2.7.2.686 [id number] [facility] 2021-03-15 10:00:00 2021-03-15 23:59:00 Hospital Encounter Ghazala Alexander [facility] 1.2.840.114 350.1.13.10 4.2.7.2.686 [id number] [facility] 2021-03-15 00:00:00 2021-03-15 00:00:00 Outpatient R GHAZALA ALEXANDER [facility] [id number] [facility] 2021-03-15 00:00:00 2021-03-15 00:00:00 Telephone Ghazala Alexander [facility] Building 1.2.840.114 350.1.13.10 4.2.7.2.686 [id number] [facility] 2021-03-10 09:28:38 2021-03-10 14:42:17 Medical Billing Supervisor Visit 2, Adc Lab Ghazala Alexander [facility] Building 1.2.840.114 350.1.13.10 4.2.7.2.686 [id number] [facility] 2021-03-10 09:30:00 2021-03-10 09:30:00 Outpatient R [facility] [id number] [facility] 2021-03-10 00:00:00 2021-03-10 00:00:00 Telephone Ghazala Alexander [facility] Building 1.2.840.114 350.1.13.10 4.2.7.2.686 [id number] [facility] 2021-03-09 10:29:21 2021-03-09 11:22:02 Office Visit Ghazala Alexander [facility] [place] [facility] 1.2.840.114 350.1.13.10 4.2.7.2.686 [id number] [facility] 2021-03-09 10:30:00 2021-03-09 10:30:00 Outpatient R GHAZALA ALEXANDER [facility] [id number] [facility] 2021-03-08 00:00:00 2021-03-08 00:00:00 Telephone Ghazala Alexander [facility] nal Building 1.2.840.114 350.1.13.10 4.2.7.2.686 [id number] 134 [id number] [facility] 2021-03-03 13:26:29 2021-03-03 13:58:26 [facility] [facility] 1.2.840.114 350.1.13.10 4.2.7.2.686 [id number] [facility] 2021-03-03 13:30:00 2021-03-03 13:30:00 Outpatient R GHAZALA ALEXANDER [facility] [id number] [facility] 2021-03-03 09:28:34 2021-03-03 09:43:34 Medical Billing Supervisor Visit 2, [facility] 1.2.840.114 350.1.13.10 4.2.7.2.686 [id number] [facility] 2021-02-24 10:44:37 2021-02-24 14:22:17 Office Visit Ghazala Alexander [facility] Building 1.2.840.114 350.1.13.10 4.2.7.2.686 [id number] [facility] 2021-02-24 10:30:00 2021-02-24 10:30:00 Outpatient R GHAZALA ALEXANDER [facility] [id number] [facility] 2021-02-24 00:00:00 2021-02-24 00:00:00 Telephone Ghazala Alexander [facility] 1.2.840.114 350.1.13.10 4.2.7.2.686 [id number] [facility] 2021-02-24 00:00:00 2021-02-24 00:00:00 Telephone [facility] 1.2.840.114 350.1.13.10 4.2.7.2.686 [id number] [facility] 2021-02-18 09:33:47 2021-02-18 09:48:47 Medical Billing Supervisor Visit 2, Adc Lab [facility]ala [facility] 1.2.840.114 350.1.13.10 4.2.7.2.686 [id number] [facility] 2021-02-18 09:30:00 2021-02-18 09:30:00 Outpatient R [facility] [id number] [facility] 2021-02-18 00:00:00 2021-02-18 00:00:00 Case [facility] 1.2.840.114 350.1.13.10 4.2.7.2.686 [id number] [facility] 2021-02-10 09:26:59 2021-02-10 09:41:59 Medical Billing Supervisor Visit 2, Adc Lab [facility]azala [facility] 1.2840.114 350.1.13.10 4.2.7.2.686 [id number] [facility] 2021-02-10 09:30:00 2021-02-10 09:30:00 Outpatient R [facility] [id number] [facility] 2021-02-10 00:00:00 2021-02-10 00:00:00 Telephone [facility]azala [facility] 1.2.840.114 350.1.13.10 4.2.7.2.686 [id number] [facility] 2021-02-05 00:00:00 2021-02-05 00:00:00 Telephone Ghazala Alexander [facility] nal Building 1.2.840.114 350.1.13.10 4.2.7.2.686 [id number] 134 [id number] [facility] 2021-02-03 09:35:47 2021-02-03 09:50:47 Medical Billing Supervisor Visit 2, Adc Lab Ghazala Alexander [facility] Building 1.2.840.114 350.1.13.10 4.2.7.2.686 [id number] [facility] 2021-02-03 09:30:00 2021-02-03 09:30:00 Outpatient R GHAZALA ALEXANDER [facility] [id number] [facility] 2021-01-30 00:00:00 2021-01-30 00:00:00 Case Management Ghazala Alexander [facility] Building 1.2.840.114 350.1.13.10 4.2.7.2.686 [id number] [facility] 2021-01-28 09:54:40 2021-01-28 11:15:00 Office Visit Ghazala Alexander [facility] Building 1.2.840.114 350.1.13.10 4.2.7.2.686 [id number] [facility] 2021-01-28 10:00:00 2021-01-28 10:00:00 Outpatient R GHAZALA ALEXANDER [facility] [id number] [facility] 2021-01-27 09:37:07 2021-01-27 09:52:07 Medical Billing Supervisor Visit 2, Adc Lab Ghazala Alexander [facility] Building 1.2.840.114 350.1.13.10 4.2.7.2.686 [id number] [facility] 2021-01-27 09:30:00 2021-01-27 09:30:00 Outpatient R [facility] [id number] [facility] 2021-01-27 00:00:00 2021-01-27 00:00:00 Telephone Ghazala Alexander [facility] 1.2.840.114 350.1.13.10 4.2.7.2.686 [id number] 134 [id number] [facility] 2021-01-21 00:00:00 2021-01-21 00:00:00 Telephone Ghazala Alexander [facility] Building 1.2.840.114 350.1.13.10 4.2.7.2.686 [id number] [facility] 2021-01-20 08:51:22 2021-01-20 09:06:22 Medical Billing Supervisor Visit 2, Adc Lab Nakul Webster [facility] Building 1.2.840.114 350.1.13.10 4.2.7.2.686 [id number] [facility] 2021-01-20 09:00:00 2021-01-20 09:00:00 Outpatient R [facility] [id number] [facility] 2021-01-13 10:00:00 2021-01-13 10:58:34 Outpatient R GHAZALA ALEXANDER [facility] [id number] [facility] 2021-01-13 10:00:00 2021-01-13 10:00:00 Outpatient R [facility] [id number] [facility] 2021-01-13 09:30:00 2021-01-13 09:30:00 Outpatient R [facility] [id number] [facility] 2021-01-06 09:00:00 2021-01-06 09:00:00 Outpatient R GHAZALA ALEXANDER [facility] [id number] [facility] 2020-12-31 10:15:00 2020-12-31 10:15:00 Outpatient R GHAZALA ALEXANDER [facility] [id number] [facility] 2020-12-29 15:45:00 2020-12-29 15:45:00 Outpatient R GHAZALA ALEXANDER [facility] [id number] [facility] 2020-12-28 10:45:00 2020-12-28 10:45:00 Outpatient R GHAZALA ALEXANDER [facility] [id number] [facility] 2020-12-22 15:15:00 2020-12-22 15:15:00 Outpatient R GHAZALA ALEXANDER [facility] [id number] [facility] 2020-12-21 11:00:00 2020-12-21 11:00:00 Outpatient R GHAZALA ALEXANDER [facility] [id number] [facility] 2020-12-16 10:15:00 2020-12-16 10:15:00 Outpatient R GHAZALA ALEXANDER [facility] [id number] [facility] 2020-12-15 13:15:00 2020-12-15 13:15:00 Outpatient R GHAZALA ALEXANDER [facility] [id number] [facility] 2020-12-09 00:00:00 2020-12-09 00:00:00 Outpatient R GHAZALA ALEXANDER [facility] [id number] [facility] 2020-12-07 09:00:00 2020-12-07 09:00:00 Outpatient R FRANDY BOWSERCY [facility] [id number] [facility] 2020-12-02 11:30:00 2020-12-02 11:30:00 Outpatient R BENJAMIN GHAZALA [facility] [id number] [facility] 2020-11-30 10:45:00 2020-11-30 10:45:00 Outpatient R [facility] [id number] [facility] 2020-11-26 11:30:00 2020-11-26 11:30:00 Outpatient R [facility] [id number] [facility] 2020-11-24 10:00:00 2020-11-24 10:00:00 Outpatient R BENJAMIN GHAZALA [facility] [id number] [facility] 2020-07-27 14:45:46 2020-07-27 23:59:00 Outpatient R BRADY GEE [facility] [id number] [facility] 2020-06-24 13:59:27 2020-06-24 14:14:27 Office Visit [facility]upesh [facility] Specialisa Fajardo 1..840.114 350.1.13.10 4.2.7.2.686 [id number] [facility] 2020-06-24 14:00:00 2020-06-24 14:00:00 Outpatient R KASANDRA BLACKMAN [facility] [id number] [facility] 2020-06-24 00:00:00 2020-06-24 00:00:00 Orders Only Doctor Unassigned, [place] [facility] 1..840.114 350.1.13.10 4.2.7.2.686 [id number] [facility] 2020-06-17 14:04:23 2020-06-17 15:20:53 Office Visit Rupesh [facility] Surgical Specialti laura Fajardo 1..840.114 350.1.13.10 4.2.7.2.686 [id number] [facility] 2020-06-17 14:30:00 2020-06-17 14:30:00 Outpatient KASANDRA BRYANT [facility] [id number] [facility] 2020-06-17 00:00:00 2020-06-17 00:00:00 Orders Only Doctor Unassigned, [place] [facility] 1..840.114 350.1.13.10 4.2.7.2.686 [id number] [facility] Results Test Description Test Time Test Comments Results Result Co mments Source [facility] w/o Specific [id number] 18:38:00* Test Item Value Reference Range Interpretation Comme nts POCT PH U (test code = 3254) 5 mg/dl 5-8 POCT U LEUK EST (test code = 3263) ++ Negative - Negative POCT U NIT (test code = 3262) negative Negative - Negati ve POCT U PROT (test code = 3259) trace Negative - Negat ayanna POCT U GLU (test code = 3256) normal Negative - Negati ve POCT U KETONE (test code = 3258) negative Negative - Neg ative POCT U BLD (test code = 3257) negative Negative - Negati ve [facility] COMPLETE WITH [id number] 01:51:49ULTRASOUND PELVIC COMPLETE WITH TRANSVAGINAL Ordering Physician: ANGELES PANCHAL Clinical History: Pelvic pain Technique: ?Examination was done transabdominally and endovaginally.Multiple transverse and sagittal images of the ovaries and uterus wereobtained. ?Images were permanently saved to the PACS. FINDINGS: The uterus measures 6.8 x 3.9 x 5.0 cm. Endometrium measures 4 mm. Uterusis retroflexed. The right ovary measures 5.6 x 2.8 x 3.6 cm. There is a simple cyst on theright ovary measuring 5.2 x 2.3 x 3.5 cm. The left ovary measures 3.2 x 0.9x 1.1 cm. Small amount of free fluid in theposterior cul-de-sac of the pelvisUnAdventHealthCULTURE, URINE 2023-05-10 08:59:59SPECIMEN NUMBER: [id number] CULTURE, URINE SPECIMEN NUMBER: [id number] SPECIMEN COMMENT: URINE SOURCE: URINE REPORT STATUS: FINAL FINAL REPORT: 05/10/2023 <10,000 CFU/ML UROGENITAL LUIS MANUEL PRESENT NO COMMON PATHOGENS UNLESS OTHERWISE INDICATED, ALL TESTING PERFORMED AT [facility] [address] [place] [address] DRILL BIT SHARPENER: BRENDA VALDOVINOS M.D. CLIA NUMBER [id number] [place]. [id number], [id number] 00:00:00* Test Item Value Reference Range Interpretation Comme nts CULTURE, URINE (test code = 57519) SPECIMEN NUMBER: [id number] Guillaume AbdulLTREYES, [id number] 00:00:00* Test Item Value Reference Range Interpretation Comme nts CULTURE, URINE (test code = 66432) SPECIMEN NUMBER: [id number] Guillaume CabreraPOCT [id number] 13:03:00* Test Item Value Reference Range Interpretation Comme nts POCT PREG (test code = 1605) Negative On board controls acceptable with C Line (test code = 3574) Yes POCT PREG LOT # (test code = 3575) 05/31/2024 POCT PREG TEST DATE ( test code = 3576) [id number] [facility] [id number] 13:03:00* Test Item Value Reference Range Interpretation Comme nts POCT PREG (test code = 1605) Negative On board controls acceptable with C Line (test code = 3574) Yes POCT PREG LOT # (test code = 3575) 05/31/2024 POCT PREG TEST DATE ( test code = 3576) [id number] [facility] [id number] 04:23:54* Test Item Value Reference Range Interpretation Comme nts GLUCOSE (test code = 2217) 81 MG/DL 70-99 BUN (test code = 2208) 16 MG/DL 6-20 CREATININE (test code = 2214) 0.81 MG/DL 0.60-1.30 eGFR (2020 CKD-EPI) (test code = ) 97 ML/MIN/1.73 >60 CALC BUN/CREAT (test code = 2234) 20 RATIO 6-28 SODIUM (test code = 2230) 140 MEQ/L 133-146 POTASSIUM (test code = 2227) 4.1 MEQ/L 3.5-5.4 CHLORIDE (test code = 2214) 104 MEQ/L 95-107 CARBON DIOXIDE (test code = 2205) 22 MEQ/L 19-31 CALCIUM (test code = 2208) 8.9 MG/DL 8.5-10.5 PROTEIN, TOTAL (test code = 2228) 7.2 G/DL 6.1-8.3 ALBUMIN (test code = 2200) 4.8 G/DL 3.5-5.2 CALC GLOBULIN (test code = 2239) 2.4 G/DL 1.9-3.7 CALC A/G RATIO (test code = 2233) 2.0 RATIO 1.0-2.6 BILIRUBIN, TOTAL (test code = 2206) 0.3 MG/DL See_Comment [Automated me ssage] The system which generated this result transmitted reference range: <=1.2. The reference range was not used to interpret this result as normal/abnormal. ALKALINE PHOSPHATASE (test code = 2203) 95 U/L 40-114 AST (test code = 2217) 25 U/L 9-40 ALT (test code = 2218) 27 U/L 5-40 LIPID [id number] 04:23:54* Test Item Value Reference Range Interpretation Comme nts CHOLESTEROL (test code = 2210) 214 MG/DL <200 H TRIGLYCERIDES (test code = 2232) 78 MG/DL <150 HDL CHOLESTEROL (test code = 2220) 59 MG/DL >39 CALC LDL CHOL (test code = 2237) 138 MG/DL <100 H NOTE: CALCULATED LDL IS BASED ON TREVA-CALDERON METHOD WHICHINCLUDES ADJUSTABLE TRIGLYCERIDE:VLDL CHOLESTEROL RATIO.THIS FACTOR VARIES BY MEASURED TRIGLYCERIDE AND NON-HDLCHOLESTEROL CONCENTRATIONS WITH INCREASED CALCULATED LDL SEENIN HIGHER TRIGLYCERIDE OR LOWER NON-HDL SPECIMENS. FOR MOREINFORMATION, SEE CLIENT ANNOUNCEMENT AT [email or web address] RISK RATIO LDL/HDL (test code = 2238) 2.34 RATIO <3.22 UNLESS OTHERW ISE INDICATED, ALL TESTING PERFORMED AT [facility] [address] [place] [address] DRILL BIT SHARPENER: Boo GARCIAIA NUMBER [id number] [facility] [place]. [id number] COMPREHENSIVE METABOLIC [id number] 00:00:00* Test Item Value Reference Range Interpretation Comme nts GLUCOSE (test code = 2217) 81 MG/DL BUN (test code = 2208) 16 MG/DL CREATININE (test code = 2214) 0.81 MG/DL eGFR (2020 CKD-EPI) (test co de = 65416) 97 ML/MIN/1.73 CALC BUN/CREAT (test code = 2235) 20 RATIO SODIUM (test code = 2231) 140 MEQ/L POTASSIUM (test code = 2228) 4.1 MEQ/L CHLORIDE (test code = 2215) 104 MEQ/L CARBON DIOXIDE (test code = 2206) 22 MEQ/L CALCIUM (test code = 2209) 8.9 MG/DL PROTEIN, TOTAL (test code = 2229) 7.2 G/DL ALBUMIN (test code = 2201) 4.8 G/DL CALC GLOBULIN (test code = 2240) 2.4 G/DL CALC A/G RATIO (test code = 2234) 2.0 RATIO BILIRUBIN, TOTAL (test code = 2207) 0.3 MG/DL ALKALINE PHOSPHATASE (test code = 2204) 95 U/L AST (test code = 2218) 25 U/L ALT (test code = 2219) 27 U/L Guillaume Hallie AustinLIPID [id number] 00:00:00* Test Item Value Reference Range Interpretation Comme nts CHOLESTEROL (test code = 2210) 214 MG/DL TRIGLYCERIDES (test code = 2232) 78 MG/DL HDL CHOLESTEROL (test code = 2220) 59 MG/DL CALC LDL CHOL (test code = 2237) 138 MG/DL RISK RATIO LDL/HDL (test cod e = 2238) 2.34 RATIO Guillaume Sterling RickCOMPREHENSIVE METABOLIC [id number] 00:00:00* Test Item Value Reference Range Interpretation Comme nts GLUCOSE (test code = 2217) 81 MG/DL BUN (test code = 2208) 16 MG/DL CREATININE (test code = 2214) 0.81 MG/DL eGFR (2020 CKD-EPI) (test co de = 90541) 97 ML/MIN/1.73 CALC BUN/CREAT (test code = 2235) 20 RATIO SODIUM (test code = 2231) 140 MEQ/L POTASSIUM (test code = 2228) 4.1 MEQ/L CHLORIDE (test code = 2215) 104 MEQ/L CARBON DIOXIDE (test code = 2206) 22 MEQ/L CALCIUM (test code = 2209) 8.9 MG/DL PROTEIN, TOTAL (test code = 2229) 7.2 G/DL ALBUMIN (test code = 2201) 4.8 G/DL CALC GLOBULIN (test code = 2240) 2.4 G/DL CALC A/G RATIO (test code = 2234) 2.0 RATIO BILIRUBIN, TOTAL (test code = 2207) 0.3 MG/DL ALKALINE PHOSPHATASE (test code = 2204) 95 U/L AST (test code = 2218) 25 U/L ALT (test code = 2219) 27 U/L Guillaume CabreraLIPID [id number] 00:00:00* Test Item Value Reference Range Interpretation Comme nts CHOLESTEROL (test code = 2210) 214 MG/DL TRIGLYCERIDES (test code = 2232) 78 MG/DL HDL CHOLESTEROL (test code = 2220) 59 MG/DL CALC LDL CHOL (test code = 2237) 138 MG/DL RISK RATIO LDL/HDL (test cod e = 2238) 2.34 RATIO Guillaume CabreraCOMPREHENSIVE METABOLIC [id number] 00:00:00* Test Item Value Reference Range Interpretation Comme nts GLUCOSE (test code = 2217) TEST NOT PERFORMED MG/DL BUN (test code = 2208) TEST NOT PERFORME D MG/DL CREATININE (test code = 2214) TEST NOT PERFORMED MG/DL eGFR (2020 CKD-EPI) (test code = 26848) TEST NOT PERFORMED ML/MIN/1.73 CALC BUN/CREAT (test code = 2235) TEST NOT PERFORMED RATIO SODIUM (test code = 2231) TEST NOT PERFORMED MEQ/L POTASSIUM (test code = 2228) TEST NOT PERFORMED MEQ/L CHLORIDE (test code = 2215) TEST NOT PERFORMED MEQ/L CARBON DIOXIDE (test code = 2206) TEST NOT PERFORMED MEQ/L CALCIUM (test code = 2209) TEST NOT PERFORMED MG/DL PROTEIN, TOTAL (test code = 2229) TEST NOT PERFORMED G/DL ALBUMIN (test code = 2201) TEST NOT PERFORMED G/DL CALC GLOBULIN (test code = 2240) TEST NOT PERFORMED G/DL CALC A/G RATIO (test code = 2234) TEST NOT PERFORMED RATIO BILIRUBIN, TOTAL (test code = 2207) TEST NOT PERFORMED MG/DL ALKALINE PHOSPHATASE (test code = 2204) TEST NOT PERFORMED U/L AST (test code = 2218) TEST NOT PERFORME D U/L ALT (test code = 2219) TEST NOT PERFORME D U/L Guillaume Hallie CabreraLIPID [id number] 00:00:00* Test Item Value Reference Range Interpretation Comme nts CHOLESTEROL (test code = 2210) TEST NOT PERFORMED MG/DL TRIGLYCERIDES (test code = 2232) TEST NOT PERFORMED MG/DL HDL CHOLESTEROL (test code = 2220) TEST NOT PERFORMED MG/DL CALC LDL CHOL (test code = 2237) TEST NOT PERFORMED MG/DL RISK RATIO LDL/HDL (test code = 2238) TEST NOT PERFORMED RATIO Guillaume CabreraCOMPREHENSIVE METABOLIC [id number] 00:00:00* Test Item Value Reference Range Interpretation Comme nts GLUCOSE (test code = 2217) TEST NOT PERFORMED MG/DL BUN (test code = 2208) TEST NOT PERFORME D MG/DL CREATININE (test code = 2214) TEST NOT PERFORMED MG/DL eGFR (2020 CKD-EPI) (test code = 01943) TEST NOT PERFORMED ML/MIN/1.73 CALC BUN/CREAT (test code = 2235) TEST NOT PERFORMED RATIO SODIUM (test code = 2231) TEST NOT PERFORMED MEQ/L POTASSIUM (test code = 2228) TEST NOT PERFORMED MEQ/L CHLORIDE (test code = 2215) TEST NOT PERFORMED MEQ/L CARBON DIOXIDE (test code = 2206) TEST NOT PERFORMED MEQ/L CALCIUM (test code = 2209) TEST NOT PERFORMED MG/DL PROTEIN, TOTAL (test code = 2229) TEST NOT PERFORMED G/DL ALBUMIN (test code = 2201) TEST NOT PERFORMED G/DL CALC GLOBULIN (test code = 2240) TEST NOT PERFORMED G/DL CALC A/G RATIO (test code = 2234) TEST NOT PERFORMED RATIO BILIRUBIN, TOTAL (test code = 2207) TEST NOT PERFORMED MG/DL ALKALINE PHOSPHATASE (test code = 2204) TEST NOT PERFORMED U/L AST (test code = 2218) TEST NOT PERFORME D U/L ALT (test code = 2219) TEST NOT PERFORME D U/L Guillaume CabreraLIPID [id number] 00:00:00* Test Item Value Reference Range Interpretation Comme nts CHOLESTEROL (test code = 2210) TEST NOT PERFORMED MG/DL TRIGLYCERIDES (test code = 2232) TEST NOT PERFORMED MG/DL HDL CHOLESTEROL (test code = 2220) TEST NOT PERFORMED MG/DL CALC LDL CHOL (test code = 2237) TEST NOT PERFORMED MG/DL RISK RATIO LDL/HDL (test code = 2238) TEST NOT PERFORMED RATIO Guillaume CabreraCBC (INCLUDES DIFF/PLT)-[id number] 03:00:00* Test Item Value Reference Range Interpretation Comme nts WHITE BLOOD CELL COUNT-Q (test code = 6690-2) 7.1 See_Comment [FORA.tv] The system which generated this result transmitted reference range: 3.8 - 10.8 Thousand/uL. The reference range was not used to interpret this result as normal/abnormal. RED BLOOD CELL COUNT-Q (test code = 789-8) 4.42 See_Comment [FORA.tv] The system which generated this result transmitted reference range: 3.80 - 5.10 Million/uL. The reference range was not used to interpret this result as normal/abnormal. HEMOGLOBIN-Q (test code = 718-7) 12.5 g/dL 11.7-15.5 HEMATOCRIT-Q (test code = 4544-3) 37.4 % 35.0-45.0 MCV-Q (test code = 787-2) 84.6 fL 80.0-100.0 MCH-Q (test code = 785-6) 28.3 pg 27.0-33.0 MCHC-Q (test code = 786-4) 33.4 g/dL 32.0-36.0 RDW-Q (test code = 788-0) 13.0 % 11.0-15.0 PLATELET COUNT-Q (test code = 777-3) 227 See_Comment [FORA.tv] The system which generated this result transmitted reference range: 140 - 400 Thousand/uL. The reference range was not used to interpret this result as normal/abnormal. MPV-Q (test code = 776-5) 11.2 fL 7.5-12.5 ABSOLUTE NEUTROPHILS-Q (test code = 751-8) 3941 See_Comment [Automated messa ge] The system which generated this result transmitted reference range: 1500 - 7800 cells/uL. The reference range was not used to interpret this result as normal/abnormal. ABSOLUTE LYMPHOCYTES-Q (test code = 731-0) 2521 See_Comment [Automated messa ge] The system which generated this result transmitted reference range: 850 - 3900 cells/uL. The reference range was not used to interpret this result as normal/abnormal. ABSOLUTE MONOCYTES-Q (test code = 742-7) 511 See_Comment [Automated messa ge] The system which generated this result transmitted reference range: 200 - 950 cells/uL. The reference range was not used to interpret this result as normal/abnormal. ABSOLUTE EOSINOPHILS-Q (test code = 711-2) 99 See_Comment [Automated messa ge] The system which generated this result transmitted reference range: 15 - 500 cells/uL. The reference range was not used to interpret this result as normal/abnormal. ABSOLUTE BASOPHILS-Q (test code = 704-7) 28 See_Comment [Automated messa ge] The system which generated this result transmitted reference range: 0 - 200 cells/uL. The reference range was not used to interpret this result as normal/abnormal. NEUTROPHILS-Q (test code = 770-8) 55.5 % LYMPHOCYTES-Q (test code = 736-9) 35.5 % MONOCYTES-Q (test code = 5905-5) 7.2 % EOSINOPHILS-Q (test code = 713-8) 1.4 % BASOPHILS-Q (test code = 706-2) 0.4 % MAIDA (test code = MAIDA) PERFORMED BY [employer] [facility]; [address] [place] [address]; EJ HOWELL MD,PHD. [facility] URINALYSIS W/O SPECIFIC [id number] 16:30:00* Test Item Value Reference Range Interpretation Comme nts POCT PH U (test code = 3254) 6 mg/dl 5-8 POCT U LEUK EST (test code = 3263) negative Negative - Negative POCT U NIT (test code = 3262) negative Negative - Negati ve POCT U PROT (test code = 3259) negative Negative - Negat ayanna POCT U GLU (test code = 3256) negative Negative - Negati ve POCT U KETONE (test code = 3258) negative Negative - Neg ative POCT U BLD (test code = 3257) negative Negative - Negati ve [facility] URINALYSIS W/O SPECIFIC [id number] 16:30:00* Test Item Value Reference Range Interpretation Comme nts POCT PH U (test code = 3254) 6 mg/dl 5-8 POCT U LEUK EST (test code = 3263) negative Negative - Negative POCT U NIT (test code = 3262) negative Negative - Negati ve POCT U PROT (test code = 3259) negative Negative - Negat ayanna POCT U GLU (test code = 3256) negative Negative - Negati ve POCT U KETONE (test code = 3258) negative Negative - Neg ative POCT U BLD (test code = 3257) negative Negative - Negati ve [facility] URINALYSIS W/O SPECIFIC [id number] 15:30:00* Test Item Value Reference Range Interpretation Comme nts POCT PH U (test code = 3254) 5 mg/dl 5-8 POCT U LEUK EST (test code = 3263) 1+ Negative - Negative POCT U NIT (test code = 3262) Negative Negative - Negati ve POCT U PROT (test code = 3259) Negative Negative - Negat ayanna POCT U GLU (test code = 3256) Negative Negative - Negati ve POCT U KETONE (test code = 3258) Negative Negative - Neg ative POCT U BLD (test code = 3257) Negative Negative - Negati ve [facility] URINALYSIS W/O SPECIFIC [id number] 15:30:00* Test Item Value Reference Range Interpretation Comme nts POCT PH U (test code = 3254) 5 mg/dl 5-8 POCT U LEUK EST (test code = 3263) 1+ Negative - Negative POCT U NIT (test code = 3262) Negative Negative - Negati ve POCT U PROT (test code = 3259) Negative Negative - Negat ayanna POCT U GLU (test code = 3256) Negative Negative - Negati ve POCT U KETONE (test code = 3258) Negative Negative - Neg ative POCT U BLD (test code = 3257) Negative Negative - Negati ve [facility] - [id number] 14:39:24* Test Item Value Reference Range Interpretation Comme nts T. PALLIDUM - PA (test code = 39090) REACTIVE NON-REACTIVE A UNLESS OTHER GARCIA INDICATED, ALL TESTING PERFORMED AT [facility] [address] [place] [address] DRILL BIT SHARPENER: BRENDA VALDOVINOS M.D. [place] NUMBER [id number] [facility] [place]. [id number] T. PALLIDUM - PA [REFLEX]2022-11-16 00:00:00* Test Item Value Reference Range Interpretation Comme nts T. PALLIDUM - PA (test code = 85999) REACTIVE Guillaume Sterling AustinT. PALLIDUM - PA [REFLEX]2022-11-16 00:00:00* Test Item Value Reference Range Interpretation Comme nts T. PALLIDUM - PA (test code = 33230) REACTIVE Guillaume CabreraCT/NG, NAAT, [id number] 14:05:47* Test Item Value Reference Range Interpretation Comme nts CHLAMYDIA, NAAT, URINE (test code = 60761) NEGATIVE NEGATIVE Testing is perfo rmed with Khadar YARIEL 6800/8800 systems usingreal-time polymerase chain reaction (PCR) method. A negative result does not exclude low level infection, specimensampling error, or collection error. GONORRHEA, NAAT, URINE (test code = 78336) NEGATIVE NEGATIVE Testing is perfo rmed with Khadar YARIEL 6800/8800 systems usingreal-time polymerase chain reaction (PCR) method. A negative result does not exclude low level infection, specimensampling error, or collection error. HIV 1/2 4TH GEN, RFLX [id number] 09:13:29* Test Item Value Reference Range Interpretation Comme nts HIV 1/2 4TH GEN, RFLX CONF ( test code = 3514) NON-REACTIVE NON-REACTIVE RPR REFLEX TO T. PALLIDUM - [id number] 08:47:50* Test Item Value Reference Range Interpretation Comme nts RPR (test code = 75941) REACTIVE NON-REACTIVE A SCREENING RPR RE ACTIVE. SEE BELOW FOR REFLEX TP-PA RPR TITER (test code = 3500) 1:2 TITER NOT INDIC. H HIV 1/2 4TH GEN, RFLX [id number] 00:00:00* Test Item Value Reference Range Interpretation Comme nts HIV 1/2 4TH GEN, RFLX CONF ( test code = 3514) NON-REACTIVE Guillaume F AustinRPR REFLEX TO T. PALLIDUM - [id number] 00:00:00* Test Item Value Reference Range Interpretation Comme nts RPR (test code = 58628) REACTIVE RPR TITER (test code = 3500) 1:2 TITER Guillaume F AustinCT/NG, TMA, [id number] 00:00:00* Test Item Value Reference Range Interpretation Comme nts CHLAMYDIA, NAAT, URINE (test code = 61311) NEGATIVE GONORRHEA, NAAT, URINE (test code = 02353) NEGATIVE Guillaume CabreraHIV 1/2 4TH GEN, RFLX [id number] 00:00:00* Test Item Value Reference Range Interpretation Comme nts HIV 1/2 4TH GEN, RFLX CONF ( test code = 3514) NON-REACTIVE Guillaume F AustinRPR REFLEX TO T. PALLIDUM - [id number] 00:00:00* Test Item Value Reference Range Interpretation Comme nts RPR (test code = 59963) REACTIVE RPR TITER (test code = 3500) 1:2 TITER Guillaume Sterling AustinCT/NG, TMA, [id number] 00:00:00* Test Item Value Reference Range Interpretation Comme nts CHLAMYDIA, NAAT, URINE (test code = 78247) NEGATIVE GONORRHEA, NAAT, URINE (test code = 08101) NEGATIVE Guillaume Sterling AustinPOCT URINALYSIS W/O SPECIFIC [id number] 20:08:00* Test Item Value Reference Range Interpretation Comme nts POCT PH U (test code = 3254) 8 mg/dl 5-8 POCT U LEUK EST (test code = 3263) negative Negative - Negative POCT U NIT (test code = 3262) positive Negative - Negati ve POCT U PROT (test code = 3259) negative Negative - Negat ayanna POCT U GLU (test code = 3256) negative Negative - Negati ve POCT U KETONE (test code = 3258) trace Negative - Neg ative POCT U BLD (test code = 3257) trace Negative - Negati ve [facility] URINALYSIS W/O SPECIFIC [id number] 20:08:00* Test Item Value Reference Range Interpretation Comme nts POCT PH U (test code = 3254) 8 mg/dl 5-8 POCT U LEUK EST (test code = 3263) negative Negative - Negative POCT U NIT (test code = 3262) positive Negative - Negati ve POCT U PROT (test code = 3259) negative Negative - Negat ayanna POCT U GLU (test code = 3256) negative Negative - Negati ve POCT U KETONE (test code = 3258) trace Negative - Neg ative POCT U BLD (test code = 3257) trace Negative - Negati ve [facility] URINALYSIS W/O SPECIFIC [id number] 13:14:00* Test Item Value Reference Range Interpretation Comme nts POCT PH U (test code = 3254) 5 mg/dl 5-8 POCT U LEUK EST (test code = 3263) Trace Negative - Negative POCT U NIT (test code = 3262) Negative Negative - Negati ve POCT U PROT (test code = 3259) Negative Negative - Negat ayanna POCT U GLU (test code = 3256) Negative Negative - Negati ve POCT U KETONE (test code = 3258) Trace Negative - Neg ative POCT U BLD (test code = 3257) Negative Negative - [facility] SPECIFIC [id number] 13:14:00* Test Item Value Reference Range Interpretation Comme nts POCT PH U (test code = 3254) 5 mg/dl 5-8 POCT U LEUK EST (test code = 3263) Trace Negative - Negative POCT U NIT (test code = 3262) Negative Negative - Negati ve POCT U PROT (test code = 3259) Negative Negative - Negat ayanna POCT U GLU (test code = 3256) Negative Negative - Negati ve POCT U KETONE (test code = 3258) Trace Negative - Neg ative POCT U BLD (test code = 3257) Negative Negative - [facility]ati [facility] [id number] 00:36:23* Test Item Value Reference Range Interpretation Comme nts ANTI-NUCLEAR ANTIBODIES (test code = 3506) NEGATIVE NEGATIVE METHODOLOGY IS I NDIRECT IMMUNOFLUORESCENT ASSAY (IFA) WITH HUMAN EPITHELIAL (HEP-2) CELL LINE SUBSTRATE. UNLESS OTHERWISE INDICATED, ALL TESTING PERFORMED [employer]. [address] [place] [address] DRILL BIT SHARPENER: FER MORALES M.D. CLIA NUMBER [id number] [place]. [id number] SARAH NON-REFLEX TO TITER [ADDED]2022-01-22 00:00:00* Test Item Value Reference Range Interpretation Comme nts ANTI-NUCLEAR ANTIBODIES (matilda t code = 3506) NEGATIVE Guillaume F AustinANA NON-REFLEX TO TITER [ADDED]2022-01-22 00:00:00* Test Item Value Reference Range Interpretation Comme nts ANTI-NUCLEAR ANTIBODIES (matilda t code = 3506) NEGATIVE Guillaume F AustinANA NON-REFLEX TO [id number] 08:16:10* Test Item Value Reference Range Interpretation Comme nts ANTI-NUCLEAR ANTIBODIES (test code = 3506) TEST NOT PERFORMED NEGATIVE Unable to perform testing, specimen not received.Charges adjusted as applicable. METHODOLOGY IS INDIRECT IMMUNOFLUORESCENT ASSAY (IFA) WITH HUMAN EPITHELIAL (HEP-2) CELL LINE SUBSTRATE. UNLESS OTHERWISE INDICATED, ALL TESTING PERFORMED [employer] [address] [place] [address] DRILL BIT SHARPENER: FER MORALES M.D. CLIA NUMBER [id number] [place]. [id number] SARAH NON-REFLEX TO [id number] 00:00:00* Test Item Value Reference Range Interpretation Comme nts ANTI-NUCLEAR ANTIBODIES (test code = 3506) TEST NOT PERFORMED Guillaume F AustinANA NON-REFLEX TO [id number] 00:00:00* Test Item Value Reference Range Interpretation Comme nts ANTI-NUCLEAR ANTIBODIES (test code = 3506) TEST NOT PERFORMED Guillaume F AustinCOMPREHENSIVE METABOLIC [id number] 04:10:17* Test Item Value Reference Range Interpretation Comme nts GLUCOSE (test code = 2216) 102 MG/DL 70-99 H BUN (test code = 2207) 16 MG/DL 6-20 CREATININE (test code = 2213) 0.67 MG/DL 0.60-1.30 eGFR (2020 CKD-EPI) (test code = 94778) 118 ML/MIN/1.73 >60 CALC BUN/CREAT (test code = 2234) 24 RATIO 6-28 SODIUM (test code = 223) 138 MEQ/L 133-146 POTASSIUM (test code = 2227) 4.1 MEQ/L 3.5-5.4 CHLORIDE (test code = 2214) 101 MEQ/L 95-107 CARBON DIOXIDE (test code = 2205) 24 MEQ/L 19-31 CALCIUM (test code = 2208) 9.8 MG/DL 8.5-10.5 PROTEIN, TOTAL (test code = 2228) 7.5 G/DL 6.1-8.3 ALBUMIN (test code = 2200) 5.0 G/DL 3.5-5.2 CALC GLOBULIN (test code = 0) 2.5 G/DL 1.9-3.7 CALC A/G RATIO (test code = 2233) 2.0 RATIO 1.0-2.6 BILIRUBIN, TOTAL (test code = 2206) 0.3 MG/DL See_Comment [Automated me ssage] The system which generated this result transmitted reference range: <=1.2. The reference range was not used to interpret this result as normal/abnormal. ALKALINE PHOSPHATASE (test code = 2203) 79 U/L 40-114 AST (test code = 2217) 19 U/L 9-40 ALT (test code = 2219) 18 U/L 5-40 UNLESS OTHERWISE INDICATED, ALL TESTING PERFORMED [facility] [address] [place] [address], [place] [address] DRILL BIT SHARPENER: FER MORALES M.D. CLIA NUMBER [id number] [facility] [place]. [id number] CBC W/AUTO DIFF WITH [id number] 03:51:39* Test Item Value Reference Range Interpretation Comme nts WBC (test code = 1001) 9.6 K/UL 3.5-11.0 RBC (test code = 1002) 5.06 M/UL 3.80-5.40 HEMOGLOBIN (test code = 1003) 14.7 G/DL 11.5-15.5 HEMATOCRIT (test code = 1004) 42.9 % 34.0-45.0 MCV (test code = 1005) 84.8 fL 80.0-99.0 MCH (test code = 1006) 29.1 PG 25.0-33.0 MCHC (test code = 1007) 34.3 G/DL 31.0-36.0 RDW (test code = 1038) 12.8 % 11.5-15.0 NEUTROPHILS (test code = 1008) 84.0 % LYMPHOCYTES (test code = 1010) 12.5 % MONOCYTES (test code = 1011) 3.0 % EOSINOPHILS (test code = 1012) 0.1 % BASOPHILS (test code = 1013) 0.1 % IMMATURE GRANULOCYTES (test code = 1036) 0.3 % NUCLEATED RBCS (test code = 1065) 0.0 /100 WBC'S See_Comment [Automated Pax8a ge] The system which generated this result transmitted reference range: 0.0. The reference range was not used to interpret this result as normal/abnormal. PLATELET COUNT (test code = 1015) 259 K/UL 130-400 ABSOLUTE NEUTROPHILS (test code = 1066) 8.08 K/UL 1.50-7.50 H ABSOLUTE LYMPHOCYTES (test code = 1067) 1.20 K/UL 1.00-4.00 ABSOLUTE MONOCYTES (test code = 1068) 0.29 K/UL 0.20-1.00 ABSOLUTE EOSINOPHILS (test code = 1040) 0.01 K/UL 0.00-0.50 ABSOLUTE BASOPHILS (test code = 1069) 0.01 K/UL 0.00-0.20 ABS IMMATURE GRANULOCYTES (test code = 1020) 0.03 K/UL 0.00-0.10 ABS NUCLEATED RBCS (test code = 78299) 0.00 K/UL 0.00-0.11 GC, AMPLIFIED, [id number] 00:00:00* Test Item Value Reference Range Interpretation Comme nts GONORRHEA, NAAT (test code = 91464) NEGATIVE Guillaume Hallie AustinACUTE HEPATITIS [id number] 00:00:00* Test Item Value Reference Range Interpretation Comme nts HEPATITIS A IgM (test code = 46957) NON-REACTIVE HEPATITIS B CORE IgM (test c ode = 4644) NON-REACTIVE HEPATITIS B SURF AG (test co de = 2739) NON-REACTIVE HEPATITIS C ANTIBODY (test c ode = 4675) NON-REACTIVE INTERPRETATION HEPATITIS A: (test code = 2552) (NOTE) INTERPRETATION HEPATITIS B: (test code = 68703) (NOTE) INTERPRETATION HEPATITIS C: (test code = 83245) (NOTE) Guillaume CabreraHIV AB/AG COMBO RFLX [id number] 00:00:00* Test Item Value Reference Range Interpretation Comme nts HIV 1/2 4TH GEN, RFLX CONF ( test code = 3514) NON-REACTIVE Guillaume Sterling [id number] 00:00:00* Test Item Value Reference Range Interpretation Comme nts RPR RESULT (test code = 3501) NON-REACTIVE RPR TITER (test code = 3500) NOT INDIC. TITER Guillaume CabreraCHLAMYDIA, AMPLIFIED, [id number] 00:00:00* Test Item Value Reference Range Interpretation Comme nts CHLAMYDIA, NAAT (test code = 58069) NEGATIVE Guillaume CabreraGC, AMPLIFIED, [id number] 00:00:00* Test Item Value Reference Range Interpretation Comme nts GONORRHEA, NAAT (test code = 67497) NEGATIVE Guillaume CabreraACUTE HEPATITIS [id number] 00:00:00* Test Item Value Reference Range Interpretation Comme nts HEPATITIS A IgM (test code = 10819) NON-REACTIVE HEPATITIS B CORE IgM (test c ode = 4644) NON-REACTIVE HEPATITIS B SURF AG (test co de = 2739) NON-REACTIVE HEPATITIS C ANTIBODY (test c ode = 4675) NON-REACTIVE INTERPRETATION HEPATITIS A: (test code = 2552) (NOTE) INTERPRETATION HEPATITIS B: (test code = 27566) (NOTE) INTERPRETATION HEPATITIS C: (test code = 20950) (NOTE) Guillaume CabreraHIV AB/AG COMBO RFLX [id number] 00:00:00* Test Item Value Reference Range Interpretation Comme nts HIV 1/2 4TH GEN, RFLX CONF ( test code = 3514) NON-REACTIVE Guillaume Sterling [id number] 00:00:00* Test Item Value Reference Range Interpretation Comme nts RPR RESULT (test code = 3501) NON-REACTIVE RPR TITER (test code = 3500) NOT INDIC. TITER Guillaume CabreraCHLAMYDIA, AMPLIFIED, [id number] 00:00:00* Test Item Value Reference Range Interpretation Comme nts CHLAMYDIA, NAAT (test code = 73135) NEGATIVE Guillaume Sterling AustinRPR [REFLEX]2020-06-02 00:00:00* Test Item Value Reference Range Interpretation Comme nts RPR RESULT (test code = 3501) REACTIVE RPR TITER (test code = 3500) 1:32 TITER Guillaume Sterling AustinRPR [REFLEX]2020-06-02 00:00:00* Test Item Value Reference Range Interpretation Comme nts RPR RESULT (test code = 3501) REACTIVE RPR TITER (test code = 3500) 1:32 TITER Guillaume CabreraHERPES SIMPLEX CULTURE AND [id number] 00:00:00* Test Item Value Reference Range Interpretation Comme nts SPECIMEN SOURCE (test code = 89998) VAGINAL LESION HERPES CULTURE (test code = 3533) NEGATIVE HERPES SIMPLEX TYPE I (test code = 55645) TEST NOT PERFORMED HERPES SIMPLEX TYPE II (test code = 04497) TEST NOT PERFORMED Guillaume CabreraHERPES SIMPLEX CULTURE AND [id number] 00:00:00* Test Item Value Reference Range Interpretation Comme nts SPECIMEN SOURCE (test code = 63287) VAGINAL LESION HERPES CULTURE (test code = 3533) NEGATIVE HERPES SIMPLEX TYPE I (test code = 12142) TEST NOT PERFORMED HERPES SIMPLEX TYPE II (test code = 54574) TEST NOT PERFORMED Guillaume Sterling AustinT. PALLIDUM TOTAL AB RFLX [id number] 00:00:00* Test Item Value Reference Range Interpretation Comme nts T. PALLIDUM TOTAL AB (test c ode = 51562) 38.3 INDEX Guillaume Sterling AustinT. PALLIDUM TOTAL AB RFLX [id number] 00:00:00* Test Item Value Reference Range Interpretation Comme nts T. PALLIDUM TOTAL AB (test c ode = 01672) 38.3 INDEX Guillaume [id number] 00:00:00* Test Item Value Reference Range Interpretation Comme nts RPR RESULT (test code = 3501) REACTIVE RPR TITER (test code = 3500) 1:64 TITER Guillaume [id number] 00:00:00* Test Item Value Reference Range Interpretation Comme nts RPR RESULT (test code = 3501) REACTIVE RPR TITER (test code = 3500) 1:64 TITER Guillaume CabreraANA NON-REFLEX TO [id number] 00:00:00* Test Item Value Reference Range Interpretation Comme nts ANTI-NUCLEAR ANTIBODIES (matilda t code = 3506) NEGATIVE Guillaume CabreraHIV AB/AG COMBO RFLX [id number] 00:00:00* Test Item Value Reference Range Interpretation Comme nts HIV 1/2 4TH GEN, RFLX CONF ( test code = 3514) NON-REACTIVE Guillaume CabreraANA NON-REFLEX TO [id number] 00:00:00* Test Item Value Reference Range Interpretation Comme nts ANTI-NUCLEAR ANTIBODIES (matilda t code = 3506) NEGATIVE Guillaume CabreraHIV AB/AG COMBO RFLX [id number] 00:00:00* Test Item Value Reference Range Interpretation Comme nts HIV 1/2 4TH GEN, RFLX CONF ( test code = 3514) NON-REACTIVE Guillaume CabreraCBC W/AUTO [id number] 00:00:00* Test Item Value Reference Range Interpretation Comme nts WBC (test code = 1001) 10.3 K/UL RBC (test code = 1002) 4.50 M/UL HEMOGLOBIN (test code = 1003) 13.3 G/DL HEMATOCRIT (test code = 1004) 38.7 % MCV (test code = 1005) 86.0 fL MCH (test code = 1006) 29.6 PG MCHC (test code = 1007) 34.4 G/DL RDW (test code = 1038) 12.3 % NEUTROPHILS (test code = 1008) 59.6 % LYMPHOCYTES (test code = 1010) 30.8 % MONOCYTES (test code = 1011) 7.4 % EOSINOPHILS (test code = 1012) 1.8 % BASOPHILS (test code = 1013) 0.4 % PLATELET COUNT (test code = 1015) 256 K/UL Guillaume CabreraCBC W/AUTO [id number] 00:00:00* Test Item Value Reference Range Interpretation Comme nts WBC (test code = 1001) 10.3 K/UL RBC (test code = 1002) 4.50 M/UL HEMOGLOBIN (test code = 1003) 13.3 G/DL HEMATOCRIT (test code = 1004) 38.7 % MCV (test code = 1005) 86.0 fL MCH (test code = 1006) 29.6 PG MCHC (test code = 1007) 34.4 G/DL RDW (test code = 1038) 12.3 % NEUTROPHILS (test code = 1008) 59.6 % LYMPHOCYTES (test code = 1010) 30.8 % MONOCYTES (test code = 1011) 7.4 % EOSINOPHILS (test code = 1012) 1.8 % BASOPHILS (test code = 1013) 0.4 % PLATELET COUNT (test code = 1015) 256 K/UL Guillaume AbdulLTURE, [id number] 00:00:00* Test Item Value Reference Range Interpretation Comme nts CULTURE, ROUTINE (test code = 66047) SPECIMEN NUMBER: [id number] Guillaume CabreraCULTURE, [id number] 00:00:00* Test Item Value Reference Range Interpretation Comme nts CULTURE, ROUTINE (test code = 20870) SPECIMEN NUMBER: [id number] Guillaume CabreraMONONUCLEOSIS [id number] 00:00:00* Test Item Value Reference Range Interpretation Comme nts MONONUCLEOSIS SCREEN (test c ode = 3504) NEGATIVE Guillaume CabreraMONONUCLEOSIS [id number] 00:00:00* Test Item Value Reference Range Interpretation Comme nts MONONUCLEOSIS SCREEN (test c ode = 3504) NEGATIVE Guillaume Sterling RickCHLAMYDIA, AMPLIFIED, [id number] 00:00:00* Test Item Value Reference Range Interpretation Comme nts CHLAMYDIA, TMA (test code = 39468) NEGATIVE Guillaume Sterling AustinGC, AMPLIFIED, [id number] 00:00:00* Test Item Value Reference Range Interpretation Comme nts GONORRHEA, TMA (test code = 67755) NEGATIVE Guillaume Sterling RickCHLAMYDIA, AMPLIFIED, [id number] 00:00:00* Test Item Value Reference Range Interpretation Comme nts CHLAMYDIA, TMA (test code = 93099) NEGATIVE Guillaume CabreraGC, AMPLIFIED, [id number] 00:00:00* Test Item Value Reference Range Interpretation Comme nts GONORRHEA, TMA (test code = 53440) NEGATIVE Guillaume CabreraSARS-CoV-2 (COVID-19) by RT-PCR (HIGH RISK)2019-12-04 00:00:00* Test Item Value Reference Range Interpretation Comme nts SARS-CoV-2 INTERPRETATION (t est code = 52863) NEGATIVE SOURCE (test code = 47788) NOT SPECIFIED Guillaume CabreraSARS-CoV-2 (COVID-19) by RT-PCR (HIGH RISK)2019-12-04 00:00:00* Test Item Value Reference Range Interpretation Comme nts SARS-CoV-2 INTERPRETATION (t est code = 49216) NEGATIVE SOURCE (test code = 03940) NOT SPECIFIED Guillaume CabreraOLEWING (HEPATIC) FUNCTION [id number] 00:00:00* Test Item Value Reference Range Interpretation Comme nts PROTEIN, TOTAL (test code = 2229) 7.7 G/DL ALBUMIN (test code = 2201) 4.8 G/DL BILIRUBIN, TOTAL (test code = 2207) 0.4 MG/DL BILIRUBIN, DIRECT (test code = 202) 0.1 MG/DL ALKALINE PHOSPHATASE (test c ode = 2204) 123 U/L AST (test code = 2218) 31 U/L ALT (test code = 2219) 58 U/L Guillaume Caba (HEPATIC) FUNCTION [id number] 00:00:00* Test Item Value Reference Range Interpretation Comme nts PROTEIN, TOTAL (test code = 2229) 7.7 G/DL ALBUMIN (test code = 2201) 4.8 G/DL BILIRUBIN, TOTAL (test code = 2207) 0.4 MG/DL BILIRUBIN, DIRECT (test code = 2022) 0.1 MG/DL ALKALINE PHOSPHATASE (test c ode = 2204) 123 U/L AST (test code = 2218) 31 U/L ALT (test code = 2219) 58 U/L Guillaume CabreraVAGINAL PATHOGENS DNA [id number] 00:00:00* Test Item Value Reference Range Interpretation Comme nts EDWARD SPECIES (test code = ) NEGATIVE G. VAGINALIS (test code = ) NEGATIVE T. VAGINALIS (test code = ) NEGATIVE Guillamue CabreraCBC W/AUTO [id number] 00:00:00* Test Item Value Reference Range Interpretation Comme nts WBC (test code = 1001) 6.6 K/UL RBC (test code = 1002) 4.40 M/UL HEMOGLOBIN (test code = 1003) 12.7 G/DL HEMATOCRIT (test code = 1004) 36.9 % MCV (test code = 1005) 83.9 fL MCH (test code = 1006) 28.9 PG MCHC (test code = 1007) 34.4 G/DL RDW (test code = 1038) 13.4 % NEUTROPHILS (test code = 1008) 65.7 % LYMPHOCYTES (test code = 1010) 25.0 % MONOCYTES (test code = 1011) 8.2 % EOSINOPHILS (test code = 1012) 0.9 % BASOPHILS (test code = 1013) 0.2 % PLATELET COUNT (test code = 1015) 137 K/UL Guillaume CabreraCOMPREHENSIVE METABOLIC [id number] 00:00:00* Test Item Value Reference Range Interpretation Comme nts GLUCOSE (test code = 2217) 93 MG/DL BUN (test code = 2208) 13 MG/DL CREATININE (test code = 2214) 0.50 MG/DL eGFR AMER. (test cod e = 14037) 148 ML/MIN/1.73 eGFR NON- AMER. (test code = 75858) 128 ML/MIN/1.73 CALC BUN/CREAT (test code = 2235) 26 RATIO SODIUM (test code = 2231) 139 MEQ/L POTASSIUM (test code = 2228) 4.5 MEQ/L CHLORIDE (test code = 2215) 104 MEQ/L CARBON DIOXIDE (test code = 2206) 23 MEQ/L CALCIUM (test code = 2209) 8.9 MG/DL PROTEIN, TOTAL (test code = 2229) 7.1 G/DL ALBUMIN (test code = 2201) 4.2 G/DL CALC GLOBULIN (test code = 2240) 2.9 G/DL CALC A/G RATIO (test code = 2234) 1.4 RATIO BILIRUBIN, TOTAL (test code = 2207) 0.2 MG/DL ALKALINE PHOSPHATASE (test code = 2204) 169 U/L AST (test code = 2218) 42 U/L ALT (test code = 2219) 66 U/L Guillaume CabreraLIPID [id number] 00:00:00* Test Item Value Reference Range Interpretation Comme nts CHOLESTEROL (test code = 2210) 159 MG/DL TRIGLYCERIDES (test code = 2232) 69 MG/DL HDL CHOLESTEROL (test code = 2220) 35 MG/DL CALC LDL CHOL (test code = 2237) 108 MG/DL RISK RATIO LDL/HDL (test cod e = 2238) 3.09 RATIO Guillaume CabreraVAGINAL PATHOGENS DNA [id number] 00:00:00* Test Item Value Reference Range Interpretation Comme nts EDWARD SPECIES (test code = ) NEGATIVE G. VAGINALIS (test code = ) NEGATIVE T. VAGINALIS (test code = ) NEGATIVE Guillaume CabreraCBC W/AUTO [id number] 00:00:00* Test Item Value Reference Range Interpretation Comme nts WBC (test code = 1001) 6.6 K/UL RBC (test code = 1002) 4.40 M/UL HEMOGLOBIN (test code = 1003) 12.7 G/DL HEMATOCRIT (test code = 1004) 36.9 % MCV (test code = 1005) 83.9 fL MCH (test code = 1006) 28.9 PG MCHC (test code = 1007) 34.4 G/DL RDW (test code = 1038) 13.4 % NEUTROPHILS (test code = 1008) 65.7 % LYMPHOCYTES (test code = 1010) 25.0 % MONOCYTES (test code = 1011) 8.2 % EOSINOPHILS (test code = 1012) 0.9 % BASOPHILS (test code = 1013) 0.2 % PLATELET COUNT (test code = 1015) 137 K/UL Guillaume CabreraCOMPREHENSIVE METABOLIC [id number] 00:00:00* Test Item Value Reference Range Interpretation Comme nts GLUCOSE (test code = 2217) 93 MG/DL BUN (test code = 2208) 13 MG/DL CREATININE (test code = 2214) 0.50 MG/DL eGFR AMER. (test cod e = 17190) 148 ML/MIN/1.73 eGFR NON- AMER. (test code = 49828) 128 ML/MIN/1.73 CALC BUN/CREAT (test code = 2235) 26 RATIO SODIUM (test code = 2231) 139 MEQ/L POTASSIUM (test code = 2228) 4.5 MEQ/L CHLORIDE (test code = 2215) 104 MEQ/L CARBON DIOXIDE (test code = 2206) 23 MEQ/L CALCIUM (test code = 2209) 8.9 MG/DL PROTEIN, TOTAL (test code = 2229) 7.1 G/DL ALBUMIN (test code = 2201) 4.2 G/DL CALC GLOBULIN (test code = 2240) 2.9 G/DL CALC A/G RATIO (test code = 2234) 1.4 RATIO BILIRUBIN, TOTAL (test code = 2207) 0.2 MG/DL ALKALINE PHOSPHATASE (test code = 2204) 169 U/L AST (test code = 2218) 42 U/L ALT (test code = 2219) 66 U/L Guillaume CabreraLIPID [id number] 00:00:00* Test Item Value Reference Range Interpretation Comme nts CHOLESTEROL (test code = 2210) 159 MG/DL TRIGLYCERIDES (test code = 2232) 69 MG/DL HDL CHOLESTEROL (test code = 2220) 35 MG/DL CALC LDL CHOL (test code = 2237) 108 MG/DL RISK RATIO LDL/HDL (test cod e = 2238) 3.09 RATIO Guillaume CabreraVAGINAL PATHOGENS DNA [id number] 00:00:00* Test Item Value Reference Range Interpretation Comme nts EDWARD SPECIES (test code = ) POSITIVE G. VAGINALIS (test code = 77731) NEGATIVE T. VAGINALIS (test code = 60326) NEGATIVE Guillaume Sterling AustinVAGINAL PATHOGENS DNA [id number] 00:00:00* Test Item Value Reference Range Interpretation Comme nts EDWARD SPECIES (test code = 36557) POSITIVE G. VAGINALIS (test code = 71925) NEGATIVE T. VAGINALIS (test code = 16240) NEGATIVE Guillaume Sterling AustinVAGINAL PATHOGENS DNA [id number] 00:00:00* Test Item Value Reference Range Interpretation Comme nts EDWARD SPECIES (test code = 43249) NEGATIVE G. VAGINALIS (test code = 80040) POSITIVE T. VAGINALIS (test code = 98193) NEGATIVE Guillaume CabrearGC AND CHLAMYDIA, AMPLIFIED, [id number] 00:00:00* Test Item Value Reference Range Interpretation Comme nts GONORRHEA, TMA (test code = 24390) NEGATIVE CHLAMYDIA, TMA (test code = 98099) NEGATIVE Guillaume CabreraVAGINAL PATHOGENS DNA [id number] 00:00:00* Test Item Value Reference Range Interpretation Comme nts EDWARD SPECIES (test code = 75884) NEGATIVE G. VAGINALIS (test code = 28807) POSITIVE T. VAGINALIS (test code = 21910) NEGATIVE Guillaume CabreraGC AND CHLAMYDIA, AMPLIFIED, [id number] 00:00:00* Test Item Value Reference Range Interpretation Comme nts GONORRHEA, TMA (test code = 27674) NEGATIVE CHLAMYDIA, TMA (test code = 28214) NEGATIVE Guillaume CabreraPAP TEST, THINPREP, [id number] 00:00:00* Test Item Value Reference Range Interpretation Comme nts SOURCE: (test code = 8001) Cervical/Endo cervic al SLIDES: (test code = 8011) 1 LMP: (test code = 8021) IUD SPECIMEN ADEQUACY: (test code = 81484) (NOTE) INTERPRETATION: (test code = 32956) ASCUS/EPITH. ABNORMALITY; SEE BELOW OTHER COMMENTS: (test code = 8081) (NOTE) PREPRESS SUPERVISOR: (test code = 8101) CARLOS WAY(ASCP)CANDIDA PATHOLOGIST INTERPRETATION BY: (test code = 8122) [facility] LOCATION: (test code = 72309) (NOTE) CPT: (test code = 8140) (NOTE) Guillaume CabreraPAP TEST, THINPREP, [id number] 00:00:00* Test Item Value Reference Range Interpretation Comme nts SOURCE: (test code = 8001) Cervical/Endo cervic al SLIDES: (test code = 8011) 1 LMP: (test code = 8021) IUD SPECIMEN ADEQUACY: (test code = 41530) (NOTE) INTERPRETATION: (test code = 55800) ASCUS/EPITH. ABNORMALITY; SEE BELOW OTHER COMMENTS: (test code = 8081) (NOTE) PREPRESS SUPERVISOR: (test code = 8101) CARLOS WAY(ASCP)IAC PATHOLOGIST INTERPRETATION BY: (test code = 8122) [facility] LOCATION: (test code = 16477) (NOTE) CPT: (test code = 8140) (NOTE) Guillaume Sterling AustinHPV HIGH RISK WITH GENOTYPE, [id number] 00:00:00* Test Item Value Reference Range Interpretation Comme nts HPV HIGH RISK INTERP (test c ode = 86376) NEGATIVE HPV 16 (test code = 54956) NEGATIVE HPV 18 (test code = 78969) NEGATIVE HPV, HR, OTHER GENOTYPES (te st code = 14166) NEGATIVE Guillaume Sterling AustinHPV HIGH RISK WITH GENOTYPE, [id number] 00:00:00* Test Item Value Reference Range Interpretation Comme nts HPV HIGH RISK INTERP (test c ode = 88879) NEGATIVE HPV 16 (test code = 73915) NEGATIVE HPV 18 (test code = 29160) NEGATIVE HPV, HR, OTHER GENOTYPES (te st code = 45745) NEGATIVE Guillaume Sterling AustinVAGINAL PATHOGENS DNA [id number] 00:00:00* Test Item Value Reference Range Interpretation Comme nts EDWARD SPECIES (test code = 68398) NEGATIVE G. VAGINALIS (test code = 59984) NEGATIVE T. VAGINALIS (test code = 13182) NEGATIVE Guillaume Sterling AustinVAGINAL PATHOGENS DNA [id number] 00:00:00* Test Item Value Reference Range Interpretation Comme nts EDWARD SPECIES (test code = 91199) NEGATIVE G. VAGINALIS (test code = 62125) NEGATIVE T. VAGINALIS (test code = 84422) NEGATIVE Guillaume [id number] 00:00:00* Test Item Value Reference Range Interpretation Comme nts RPR RESULT (test code = 3501) NON-REACTIVE RPR TITER (test code = 3500) NOT INDIC. TITER Guillaume Sterling AustinCHLAMYDIA, AMPLIFIED, [id number] 00:00:00* Test Item Value Reference Range Interpretation Comme nts CHLAMYDIA, TMA (test code = 93583) NEGATIVE Guillaume Sterling AustinVAGINAL PATHOGENS DNA [id number] 00:00:00* Test Item Value Reference Range Interpretation Comme nts EDWARD SPECIES (test code = 67837) NEGATIVE G. VAGINALIS (test code = 61636) POSITIVE T. VAGINALIS (test code = 78151) NEGATIVE Guillaume Sterling AustinGC, AMPLIFIED, [id number] 00:00:00* Test Item Value Reference Range Interpretation Comme nts GONORRHEA, TMA (test code = 26238) NEGATIVE Guillaume CabreraACUTE HEPATITIS [id number] 00:00:00* Test Item Value Reference Range Interpretation Comme nts HEPATITIS A IgM (test code = 21206) NON-REACTIVE HEPATITIS B CORE IgM (test c ode = 4644) NON-REACTIVE HEPATITIS B SURF AG (test co de = 2739) NON-REACTIVE HEPATITIS C ANTIBODY (test c ode = 4675) NON-REACTIVE INTERPRETATION HEPATITIS A: (test code = 2552) (NOTE) INTERPRETATION HEPATITIS B: (test code = 80894) (NOTE) INTERPRETATION HEPATITIS C: (test code = 58390) (NOTE) Guillaume [id number] 00:00:00* Test Item Value Reference Range Interpretation Comme nts RPR RESULT (test code = 3501) NON-REACTIVE RPR TITER (test code = 3500) NOT INDIC. TITER Guillaume CabreraCHLAMYDIA, AMPLIFIED, [id number] 00:00:00* Test Item Value Reference Range Interpretation Comme nts CHLAMYDIA, TMA (test code = 84140) NEGATIVE Guillaume CabreraVAGINAL PATHOGENS DNA [id number] 00:00:00* Test Item Value Reference Range Interpretation Comme nts EDWARD SPECIES (test code = 18510) NEGATIVE G. VAGINALIS (test code = 03658) POSITIVE T. VAGINALIS (test code = 61546) NEGATIVE Guillaume CabreraGC, AMPLIFIED, [id number] 00:00:00* Test Item Value Reference Range Interpretation Comme nts GONORRHEA, TMA (test code = 31699) NEGATIVE Guillaume CabreraACUTE HEPATITIS [id number] 00:00:00* Test Item Value Reference Range Interpretation Comme nts HEPATITIS A IgM (test code = 97901) NON-REACTIVE HEPATITIS B CORE IgM (test c ode = 4644) NON-REACTIVE HEPATITIS B SURF AG (test co de = 2739) NON-REACTIVE HEPATITIS C ANTIBODY (test c ode = 4675) NON-REACTIVE INTERPRETATION HEPATITIS A: (test code = 2552) (NOTE) INTERPRETATION HEPATITIS B: (test code = 04801) (NOTE) INTERPRETATION HEPATITIS C: (test code = 51993) (NOTE) Guillaume Cabrera Notes Date/Time Note Provider Source 2023-11-21 00:00:00 Raheem+[id number] [id number] 00:00:00+ +-------- ----+| Plan Activity | Plan Date |+ + +| Valtrex 500 mg BID x 3 days with one refill as needed | 2017-07-07 || women health guide printed and given to the patient | || Appended: 2017-07-07 | || Valtrex as prescribed | || RTO if s/s worsen/persist | || Appended: 2019-08-08 | || acyclovir | || gabapentin | || Discussed medication purpose and side effects | || Keep site clean and dry | || Do not have sex during outbreak | || Follow up with clinic in two weeks | |+ + +| control portions , mange weight | 2017-07-07 || discuss the risk involved in increasing weight and insulin resistance | |+ + +| wet mount today | 2019-05-04 || pending result | || clindamycin and fluconazole sent | || abstain from sexual intercourse and alcohol during treatment | || increase water intake | || proper perineal hygiene advised | || wipe from front to back | || wear cotton undergarments | || f/u PRN if symptoms persist or worsen | || Appended: 2019-06-01 | || wet mount today | || pending result | || will tx symptomatically for now | || flagyl 500mg sent . complete course | || abstain from sexual intercourse till results arrive | || increase water intake | || proper perineal hygiene advised | || wipe from front to back | || wear cotton undergarments | || f/u PRN if symptoms persist or worsen | |+ + +| GC and RPR pending | 2019-05-04 |+ + +| no pap indicated at this time. last pap 2019. next pap 2022 | 2019-06-01 || RTC on annual exam | || SBE If 40 or greater, schedule 1-2 year MMG as indicated | || If 50 or greater, schedule colonoscopy or give Heme card. | || Recommend Ca 2+ and Vitamin D if menopausal DEXA at 65 and greater | || Immunizations as age indicated | || Annual well adult with PCP as indicated | || STI labs as indicated | || Screening labs as indicated | || Await diagnostic results | |+ + +| influenza + | 2019-06-07 || tamiflu sent | || Se discussed. complete course as prescribed | || stay home for at least 24 hours after your fever is gone | || avoid sharing utensils/drinks | || increase water intake | || fever/pain control w/ tylenol/ibuprofen | || otc antihistamines for symptom relief | || continue to monitor s/s | || Stay away from others as much as possible to keep from infecting them. If you | || must leave home, for example to get medical care, wear a facemask if you have | || one, or cover coughs and sneezes with a tissue. Wash your hands often to keep | || from spreading flu to others. | || CDC also recommends that children and teenagers (anyone aged 18 years and | || younger) who have flu or are suspected to have flu should not be given Aspirin | || (acetylsalicylic acid) or any salicylate containing products (e.g. Pepto | || Bismol); this can cause a rare, very serious complication called Coby s | || syndrome. | || ER precautions | || RTO if symptoms persist/worsen | |+ + +| STD panel await results | 2019-07-03 || Gc/Ch and trichomonas testing | || Appended: 2019-12-14 | || Urine sent for Chlamydia and Gonorrhea | |+ + +| hiv pending | 2019-07-03 |+ + +| Heart Healthy diet, exercise, weight management | 2019-08-05 || Increase exercise to 45 minutes per day at least 4-5 times per week. | || Return for wellness exam at earliest convenience if have not been in for past | || year for this exam | |+ + +| wet mount | 2019-08-08 || CBC CMP | || Clinical treatment will be based on results | |+ + +| Medically necessary labs | 2019-08-08 |+ + +| lipid panel | 2019-08-08 || Clinical treatment will be based on results | |+ + +| Limit fat intake to no more than 20% to 35% of your total calorie intake. For a | 2019-08-25 || person following a 1,800-calorie diet, this means eating no more than 40 to 70 | || grams of fat each day. | || Choose complex carbohydrates, such as whole grains, vegetables, and fruits. | || About 45% to 65% of your total calorie intake should come from carbohydrate. | || For someone following a 1,800-calorie diet, this means eating about 200 to 300 | || grams of carbohydrate each day. | || Choose low-fat protein sources, such as fish, poultry, and legumes (for | || example, douglas beans, lentils, and split peas). About 10% to 35% of your total | || calorie intake should come from protein. For someone following a 1,800-calorie | || diet, this means eating about 45 to 160 grams of protein each day. | || Get enough fiber each day. Men should aim for 38 grams a day, and women should | || aim for 25 grams a day. | || Have no more than 1 alcohol drink a day for women and 2 alcohol drinks a day | || for men. | |+ + +| COVID, FLU, RSV STREP | 2019-11-21 || If positive for covid regardless of vaccination status- Isolate for 5 days. If | || you have no symptoms or your symptoms are resolving after 5 days, you can leave | || your house. Continue to wear a well-fitting mask around others for 5 additional | || days If you have a fever, continue to stay home until your fever resolves. | || | || If you were exposed: | || Have been booster OR Completed the primary series of Pfizer of Moderna vaccine | || within the last 6 months OR Completed the primary series of J&J vaccine within | || the last 2 months---- wear a mask around others for 10 days; test on day 5 , if | || possible, If you develop symptoms, get a test and stay home. | || | || IF you were exposed: Completed the primary series of Pfizer or Moderna vaccine | || over 6 months ago and are not boosted OR Completed the primary series of J&J | || over 2 months ago and are not boosted OR are unvaccinated---Stay home for 5 | || days, AFter that continue to wear a well-fitting mask around others for 5 | || additional days, If you can't quarantine you must wear a well- fiiting mask for | || 10 days. Test on day 5 if possible. If you develop symptoms, get a test and | || stay home, | |+ + +| will send over Bromfed | 2019-11-21 || stop OTC meds | || Do not sleep with ceiling fan. May use Lorena pot nasal rinse. | || RTC in 2 wks symptoms not improved. | || drink plenty of water | |+ + +| CEPHEID TESTING NEGATIVE | 2023-08-24 || Symptomatic care | || OTC medications as needed | || RTC if symptoms worsen or persist. | |+ + +| Macrobid 100mg po bid x 5 days | 2023-11-21 || Increase fluids | || Return to clinic if no improvement | |+ + +| SARAH - will add on 05/07/2020 | 2020-01-01 || RPR | |+ + +| Reviewed meds and regimen with patient | 2020-01-01 |+ + +| see above | 2020-01-20 |+ + +| nystatin 100,000 unit/mL oral suspension 10 mL three times a day | 2020-05-06 || CBC, HIV, and RPR | || throat cx | |+ + +| RPR | 2020-05-06 |+ + +| refill acyclovir 400 mg tablet one tablet tid po | 2020-05-06 |+ + +| treponema pallidium total antibodies. | 2020-05-27 |+ + +| HSV vulvar cx | 2020-05-27 |+ + +| benzathine PCN G 2.4 million Units IM x 1 | 2020-06-05 || Side effects of PCN G IM discussed. | || Recheck RPR in 6 months to 1 year | |+ + +| Monitor blood pressure | 2020-06-08 || Recommend DASH diet. | |+ + +| Pt wishes to have IUD removed | 2020-08-14 || Does not wish to start another form of BC after | || OK to remove IUD, set up apt | |+ + +| Consent signed, | 2020-08-25 || IUD removed | |+ + +| Can take Tylenol PRN for headaches | 2020-09-23 || Stay hydrated well | || limit sound and visual stimuli | |+ + +| treating for sinus mypftnbvj-ejppfhpvrzy-wyqc | 2020-09-24 || continue bromfed dm, | || saline nasal spray TID | || RTO if symptoms do not improve or worsen in 3-5 days | || ER precautions | |+ + +| Avoid trans fats /fast foods. | 2022-01-10 |+ + +| Depo Medrol 80 mg IM x 1 - did not work | 2022-01-10 || Prednisone 20 mg qd po x 5 days- did not work | || Permethrin | || Fluconazole take as directed | || Ketoconazole cream take as directed | || Diff diagnosis- tinea, scabies, allergic | |+ + +| Depo Medrol 80 mg IM x 1 -d id not work | 2022-01-10 || Prednisone 20 mg qd po x 5 days- did not work | || Permethrin take as directed | || Fluconazole take as directed | || Ketoconazole cream take as directed | || Diff diagnosis- tinea, scabies, allergic | |+ + +| Stop smoking. look into nicotine replacement alternatives such as gum OTC. | 2022-01-13 |+ + +| CBC | 2022-01-13 || CMP | || SARAH | || Permethrin take as directed | || Fluconazole take as directed | || Ketoconazole cream take as directed | || Diff diagnosis- tinea, scabies, allergic | |+ + +| UA neg | 2022-11-14 || std pending | || if pain persist, referral for TVUS pending | |+ + +| Clinically stable at this time | 2023-02-02 || Discussed need to discontinue fatty, greasy foods until work up is completed. | || schedule RUQ U/S | || Check CMP LIPIDS | || Rx omprezole 20mg 1 tab po QD | || RTO pending lab and U/S results | |+ + +| Counseled patient on smoking cessation and mcc effect of tobacco use. | 2023-04-25 |+ + +| UA | 2023-04-25 || URINE CX | |+ + +| UA | 2023-04-25 || URINE CX | || macrobid 100 mg bid po | || side effects of meds discussed with pt. | |+ + +| UA | 2023-04-25 || URINE CX | || Macrobid 100 mg bid po x 5 day | || s/e of meds discussed with pt | |+ + +| Exercise 30 minutes 5 times a week. Consume more fruits and vegetables. Avoid | 2023-05-08 || sugary snacks and drinks. | |+ + +| COVID, FLU, RSV STREP | 2023-05-08 || If positive for covid regardless of vaccination status- Isolate for 5 days. If | || you have no symptoms or your symptoms are resolving after 5 days, you can leave | || your house. Continue to wear a well-fitting mask around others for 5 additional | || days If you have a fever, continue to stay home until your fever resolves. | || | || If you were exposed: | || Have been booster OR Completed the primary series of Pfizer of Moderna vaccine | || within the last 6 months OR Completed the primary series of J&J vaccine within | || the last 2 months---- wear a mask around others for 10 days; test on day 5 , if | || possible, If you develop symptoms, get a test and stay home. | || | || IF you were exposed: Completed the primary series of Pfizer or Moderna vaccine | || over 6 months ago and are not boosted OR Completed the primary series of J&J | || over 2 months ago and are not boosted OR are unvaccinated---Stay home for 5 | || days, AFter that continue to wear a well-fitting mask around others for 5 | || additional days, If you can't quarantine you must wear a well- fiiting mask for | || 10 days. Test on day 5 if possible. If you develop symptoms, get a test and | || stay home, | |+ + +| UA | 2023-05-08 |+ + +| Ibuprofen take as directed | 2023-07-27 || Voltaren gel take as directed | || cyclobenzaprine take as directed | || s/e of meds discussed | |+ + +| Augmentin and Bromfed | 2023-09-29 || Continue nasal spray, try otc Sudafed | || RTC if new or worsening symptoms | |+ + +[id number] Plan of TreatmentLNCARE [facility]-[id number] for patient [id number] Section NarrativeNARRATIVEFormatted C-CDA narrative textSAlbuquerque Indian Health Centerivy Cuevas [facility]2024-06-26T00:00:00 Guillaume [facility] 2023-09-29 00:00:00 omAUfwlq+IaRfVqIGf61mLuGF2gmKdWyNrS Q/[id number] -T00:00:00+ +-------- ----+| Plan Activity | Plan Date |+ + +| Valtrex 500 mg BID x 3 days with one refill as needed | 2017-07-07 || women health guide printed and given to the patient | || Appended: 2017-07-07 | || Valtrex as prescribed | || RTO if s/s worsen/persist | || Appended: 2019-08-08 | || acyclovir | || gabapentin | || Discussed medication purpose and side effects | || Keep site clean and dry | || Do not have sex during outbreak | || Follow up with clinic in two weeks | |+ + +| control portions , mange weight | 2017-07-07 || discuss the risk involved in increasing weight and insulin resistance | |+ + +| wet mount today | 2019-05-04 || pending result | || clindamycin and fluconazole sent | || abstain from sexual intercourse and alcohol during treatment | || increase water intake | || proper perineal hygiene advised | || wipe from front to back | || wear cotton undergarments | || f/u PRN if symptoms persist or worsen | || Appended: 2019-06-01 | || wet mount today | || pending result | || will tx symptomatically for now | || flagyl 500mg sent . complete course | || abstain from sexual intercourse till results arrive | || increase water intake | || proper perineal hygiene advised | || wipe from front to back | || wear cotton undergarments | || f/u PRN if symptoms persist or worsen | |+ + +| GC and RPR pending | 2019-05-04 |+ + +| no pap indicated at this time. last pap 2019. next pap 2022 | 2019-06-01 || RTC on annual exam | || SBE If 40 or greater, schedule 1-2 year MMG as indicated | || If 50 or greater, schedule colonoscopy or give Heme card. | || Recommend Ca 2+ and Vitamin D if menopausal DEXA at 65 and greater | || Immunizations as age indicated | || Annual well adult with PCP as indicated | || STI labs as indicated | || Screening labs as indicated | || Await diagnostic results | |+ + +| influenza + | 2019-06-07 || tamiflu sent | || Se discussed. complete course as prescribed | || stay home for at least 24 hours after your fever is gone | || avoid sharing utensils/drinks | || increase water intake | || fever/pain control w/ tylenol/ibuprofen | || otc antihistamines for symptom relief | || continue to monitor s/s | || Stay away from others as much as possible to keep from infecting them. If you | || must leave home, for example to get medical care, wear a facemask if you have | || one, or cover coughs and sneezes with a tissue. Wash your hands often to keep | || from spreading flu to others. | || CDC also recommends that children and teenagers (anyone aged 18 years and | || younger) who have flu or are suspected to have flu should not be given Aspirin | || (acetylsalicylic acid) or any salicylate containing products (e.g. Pepto | || Bismol); this can cause a rare, very serious complication called Coby s | || syndrome. | || ER precautions | || RTO if symptoms persist/worsen | |+ + +| STD panel await results | 2019-07-03 || Gc/Ch and trichomonas testing | || Appended: 2019-12-14 | || Urine sent for Chlamydia and Gonorrhea | |+ + +| hiv pending | 2019-07-03 |+ + +| Recommend diet high in fruits and vegetables, lean meats, and healthy fats. | 2023-08-24 || Avoid trans fat and processed sugars. Monitor portion sizes. | |+ + +| Recommend daily exercise as part of a healthy lifestyle. | 2023-08-24 || 30 of moderate aerobic exercise 5 times a week. Increase your activity as | || tolerated. | |+ + +| Heart Healthy diet, exercise, weight management | 2019-08-05 || Increase exercise to 45 minutes per day at least 4-5 times per week. | || Return for wellness exam at earliest convenience if have not been in for past | || year for this exam | |+ + +| wet mount | 2019-08-08 || CBC CMP | || Clinical treatment will be based on results | |+ + +| Medically necessary labs | 2019-08-08 |+ + +| lipid panel | 2019-08-08 || Clinical treatment will be based on results | |+ + +| Limit fat intake to no more than 20% to 35% of your total calorie intake. For a | 2019-08-25 || person following a 1,800-calorie diet, this means eating no more than 40 to 70 | || grams of fat each day. | || Choose complex carbohydrates, such as whole grains, vegetables, and fruits. | || About 45% to 65% of your total calorie intake should come from carbohydrate. | || For someone following a 1,800-calorie diet, this means eating about 200 to 300 | || grams of carbohydrate each day. | || Choose low-fat protein sources, such as fish, poultry, and legumes (for | || example, douglas beans, lentils, and split peas). About 10% to 35% of your total | || calorie intake should come from protein. For someone following a 1,800-calorie | || diet, this means eating about 45 to 160 grams of protein each day. | || Get enough fiber each day. Men should aim for 38 grams a day, and women should | || aim for 25 grams a day. | || Have no more than 1 alcohol drink a day for women and 2 alcohol drinks a day | || for men. | |+ + +| COVID, FLU, RSV STREP | 2019-11-21 || If positive for covid regardless of vaccination status- Isolate for 5 days. If | || you have no symptoms or your symptoms are resolving after 5 days, you can leave | || your house. Continue to wear a well-fitting mask around others for 5 additional | || days If you have a fever, continue to stay home until your fever resolves. | || | || If you were exposed: | || Have been booster OR Completed the primary series of Pfizer of Moderna vaccine | || within the last 6 months OR Completed the primary series of J&J vaccine within | || the last 2 months---- wear a mask around others for 10 days; test on day 5 , if | || possible, If you develop symptoms, get a test and stay home. | || | || IF you were exposed: Completed the primary series of Pfizer or Moderna vaccine | || over 6 months ago and are not boosted OR Completed the primary series of J&J | || over 2 months ago and are not boosted OR are unvaccinated---Stay home for 5 | || days, AFter that continue to wear a well-fitting mask around others for 5 | || additional days, If you can't quarantine you must wear a well- fiiting mask for | || 10 days. Test on day 5 if possible. If you develop symptoms, get a test and | || stay home, | |+ + +| will send over Bromfed | 2019-11-21 || stop OTC meds | || Do not sleep with ceiling fan. May use Lorena pot nasal rinse. | || RTC in 2 wks symptoms not improved. | || drink plenty of water | |+ + +| CEPHEID TESTING NEGATIVE | 2023-08-24 || Symptomatic care | || OTC medications as needed | || RTC if symptoms worsen or persist. | |+ + +| Macrobid 100mg po bid x 5 days, Increase fluids, Return to clinic if no | 2019-12-14 || improvement in 3 days | || Urine sent for Chlamydia and Gonorrhea | |+ + +| SARAH - will add on 05/07/2020 | 2020-01-01 || RPR | |+ + +| Reviewed meds and regimen with patient | 2020-01-01 |+ + +| see above | 2020-01-20 |+ + +| nystatin 100,000 unit/mL oral suspension 10 mL three times a day | 2020-05-06 || CBC, HIV, and RPR | || throat cx | |+ + +| RPR | 2020-05-06 |+ + +| refill acyclovir 400 mg tablet one tablet tid po | 2020-05-06 |+ + +| treponema pallidium total antibodies. | 2020-05-27 |+ + +| HSV vulvar cx | 2020-05-27 |+ + +| benzathine PCN G 2.4 million Units IM x 1 | 2020-06-05 || Side effects of PCN G IM discussed. | || Recheck RPR in 6 months to 1 year | |+ + +| Monitor blood pressure | 2020-06-08 || Recommend DASH diet. | |+ + +| Pt wishes to have IUD removed | 2020-08-14 || Does not wish to start another form of BC after | || OK to remove IUD, set up apt | |+ + +| Consent signed, | 2020-08-25 || IUD removed | |+ + +| Can take Tylenol PRN for headaches | 2020-09-23 || Stay hydrated well | || limit sound and visual stimuli | |+ + +| treating for sinus ztmvqzrcl-oehpuuharfg-qurs | 2020-09-24 || continue bromfed dm, | || saline nasal spray TID | || RTO if symptoms do not improve or worsen in 3-5 days | || ER precautions | |+ + +| Avoid trans fats /fast foods. | 2022-01-10 |+ + +| Depo Medrol 80 mg IM x 1 - did not work | 2022-01-10 || Prednisone 20 mg qd po x 5 days- did not work | || Permethrin | || Fluconazole take as directed | || Ketoconazole cream take as directed | || Diff diagnosis- tinea, scabies, allergic | |+ + +| Depo Medrol 80 mg IM x 1 -d id not work | 2022-01-10 || Prednisone 20 mg qd po x 5 days- did not work | || Permethrin take as directed | || Fluconazole take as directed | || Ketoconazole cream take as directed | || Diff diagnosis- tinea, scabies, allergic | |+ + +| Stop smoking. look into nicotine replacement alternatives such as gum OTC. | 2022-01-13 |+ + +| CBC | 2022-01-13 || CMP | || SARAH | || Permethrin take as directed | || Fluconazole take as directed | || Ketoconazole cream take as directed | || Diff diagnosis- tinea, scabies, allergic | |+ + +| UA neg | 2022-11-14 || std pending | || if pain persist, referral for TVUS pending | |+ + +| Clinically stable at this time | 2023-02-02 || Discussed need to discontinue fatty, greasy foods until work up is completed. | || schedule RUQ U/S | || Check CMP LIPIDS | || Rx omprezole 20mg 1 tab po QD | || RTO pending lab and U/S results | |+ + +| Counseled patient on smoking cessation and intermodal customer service effect of tobacco use. | 2023-04-25 |+ + +| UA | 2023-04-25 || URINE CX | |+ + +| UA | 2023-04-25 || URINE CX | || macrobid 100 mg bid po | || side effects of meds discussed with pt. | |+ + +| UA | 2023-04-25 || URINE CX | || Macrobid 100 mg bid po x 5 day | || s/e of meds discussed with pt | |+ + +| Exercise 30 minutes 5 times a week. Consume more fruits and vegetables. Avoid | 2023-05-08 || sugary snacks and drinks. | |+ + +| COVID, FLU, RSV STREP | 2023-05-08 || If positive for covid regardless of vaccination status- Isolate for 5 days. If | || you have no symptoms or your symptoms are resolving after 5 days, you can leave | || your house. Continue to wear a well-fitting mask around others for 5 additional | || days If you have a fever, continue to stay home until your fever resolves. | || | || If you were exposed: | || Have been booster OR Completed the primary series of Pfizer of Moderna vaccine | || within the last 6 months OR Completed the primary series of J&J vaccine within | || the last 2 months---- wear a mask around others for 10 days; test on day 5 , if | || possible, If you develop symptoms, get a test and stay home. | || | || IF you were exposed: Completed the primary series of Pfizer or Moderna vaccine | || over 6 months ago and are not boosted OR Completed the primary series of J&J | || over 2 months ago and are not boosted OR are unvaccinated---Stay home for 5 | || days, AFter that continue to wear a well-fitting mask around others for 5 | || additional days, If you can't quarantine you must wear a well- fiiting mask for | || 10 days. Test on day 5 if possible. If you develop symptoms, get a test and | || stay home, | |+ + +| UA | 2023-05-08 |+ + +| Ibuprofen take as directed | 2023-07-27 || Voltaren gel take as directed | || cyclobenzaprine take as directed | || s/e of meds discussed | |+ + +| Augmentin and Bromfed | 2023-09-29 || Continue nasal spray, try otc Sudafed | || RTC if new or worsening symptoms | |+ + +45756-7 [facility]-[id number]|2.16.840.1.1 60463.10.20.22.2.10AVAvailable for patient xpqpBigasblRgoeexsvpQCXAd98 Section NarrativeNARRATIVEFormatted C-CDA narrative textSFAStgabyselena SterlingBra[facility]T00:00:00 [facility] 2023-05-31 16:47:19 5755-29-10J09:47:19 Patient notified new orders were placed for pelvic usn with transvaginal.Loli Cain RN 05/31/2023 4:47 PM 75304-4Iciejeqth encounter OexyIG6733-12-83K41:47:43Telephone encounter NoteTXT1.2.840.951480.1.13.104.2.7. 2.727818|[id number] for patient oahc90475-7KslfWFXBHLQHWQMMksqinpgp C-CDA narrative [id number] Stahl RNUT[id number] 6ARERYRXHPWVGKWZIDBDBTI3373-12-69M9 6:47:431.2.840.286707.1.72.3.15|1.2 .840.687185.1.13.104.2.7.2.727879_1 [id number] Loli Cain RN [facility] 2023-05-31 16:42:28 1339-60-47R00:42:28 Send new order with modification. 75906-9Hnrkyjnjv encounter JaheCP9326-37-45A45:42:40Telephone encounter NoteTXT1.2.840.973876.1.13.104.2.7. 2.110519|[id number] for patient duhj50759-0AikjHIPSTSEAUVLGleocybne C-CDA narrative text[id number] 5XUHYAFGRPLIKMXTSAKESSO8371-89-93S2 6:42:401.2.840.608008.1.72.3.15|1.2 .840.752296.1.13.104.2.7.2.727879_1 [id number] [facility] 2023-05-31 11:05:49 7202-10-66O83:05:49 Patient called stating that radiology was questioning recent pelvic usn order as it is for pelvic usn limited and the studies she had prior were for pelvic usn complete with transvaginal. They were wanting to confirm that a transvaginal was not needed. Please advise.Loli Cain RN 05/31/2023 11:08 AM 32561-3Xhwvazdkt encounter HrlbFR7031-82-61B34:08:10Telephone encounter NoteTXT1.2.840.730048.1.13.104.2.7. 2.207935|[id number] for patient ifxv11135-5KjzpXHOXTWUPFPRQcvezyqsi [employer]A Artha[employer]antra[id number] 9VSJOVZDMADXFICTIGDSCBM0855-89-33E8 1:08:101.2.840.215624.1.72.3.15|1.2 .840.654655.1.13.104.2.7.2.727879_1 [id number] [facility] 2023-05-31 09:19:57 3805-43-99D05:19:57 Attempted to contact patient by phone, no answer, message left on voicemail to call back.Loli Cain RN 05/31/2023 9:20 AM 61555-7Qilmhvoap encounter NpdqTR4168-89-00W51:20:14Telephone encounter NoteTXT1.2.840.842754.1.13.104.2.7. 2.482647|[id number] for patient zygc15392-1VmvnNQBGYOHNQGXDjsafvwyr C-CDA [id number] 0GIJFKCOTBTANSIOCWGAZYH2791-03-75H3 9:20:141.2.840.227232.1.72.3.15|1.2 .840.089857.1.13.104.2.7.2.727879_1 [id number] [facility] 2023-05-30 15:36:43 0633-93-85L04:36:43 Patient states her ultrasound order to be changed to transvag. She states she was not kayy to schedule it until order has been changed. 55712-8Vvxdngxuj encounter CynbZU9833-38-52T71:37:51Telephone encounter NoteTXT1.2.840.377261.1.13.104.2.7. 2.075643|[id number] for patient nypz19730-7LcqxMLFEGDBZHHBAcdvpvpxi C-CDA narrative [id number] 2HYSSNFUOIEQGUCSNGUAGJW9891-31-36L3 5:37:511.2.840.280682.1.72.3.15|1.2 .840.084104.1.13.104.2.7.2.727879_1 [id number] [facility] 2023-05-30 09:30:00 0687-09-10E66:30:00Addended by: ANGELES PANCHAL on: 05/31/2023 04:42 PMModules accepted: Orders 78845-0Atusmnji PpaktjsxPR7789-19-69L28:42:18Addend um DocumentTXT1.2.840.064036.1.13.104. 2.7.2.757612|[id number] for patient otju66333-7PirhVBOQBYSELBCMsxaypphc C-CDA narrative [id number] 7OSMXTIDRVPXKSYYRVZSZKJ7073-17-73Y9 6:42:181.2.840.705759.1.72.3.15|1.2 .840.810027.1.13.104.2.7.2.727879_1 [id number] [facility] 2023-02-13 12:45:00 3570-47-49T58:45:00 No labs order for patient only GC & CHLAMYDIA AMPLIFIED ASSAY and that was done up in the clinic 51684-2Fxsds RjtgAR6432-31-48P01:45:47Nurse NoteTXT1.2.840.103099.1.13.104.2.7. 2.167313|[id number] for patient kpal88320-4Vajes [id number] Sharda [id number] 1BWHOSHDZGLKVRESWSKJZIA9428-25-68C7 4:45:471.2.840.231731.1.72.3.15|1.2 .840.696167.1.13.104.2.7.2.727879_1 [id number] Jabari Daniel [facility] 2023-01-23 09:15:02 9739-83-14O16:15:02 Spoke with patient, provided referral line phone number for patient to schedule consult with infections disease. Loli Cain RN 01/23/2023 9:15 AM 65199-4Ozjkznaui encounter GgvrSV0990-07-64C96:15:51Telephone encounter NoteTXT1.2.840.324932.1.13.104.2.7. 2.766309|[id number] for patient uube77022-6YstvRDSPCHDAQX[id number] 8OJBABGERFUNPMEHRDVCVLJ9369-19-55K9 9:15:511.2.840.505161.1.72.3.15|1.2 .840.831718.1.13.104.2.7.2.727879_1 [id number] [facility] 2023-01-23 08:52:58 9395-32-42D98:52:58 Pt said she was told to give the nurse a call back. She said she just spoke with them this morning but she cant remember the nurses name 17624-4Mnjpeljxo encounter MduiYM8071-76-46X21:55:10Telephone encounter NoteTXT1.2.840.849351.1.13.104.2.7. 2.428856|[id number] for patient [id number] C [id number] 5IPGINXAMAXLVQMLTLFMVLQ5323-17-73M2 8:55:101.2.840.455723.1.72.3.15|1.2 .840.547483.1.13.104.2.7.2.727879_1 [id number] Purnima Rodriguez [facility] 2023-01-20 15:59:13 8238-22-92D66:59:13 Advised pt that provider has not reviewed lab results. Once reviewed, we will call her with results. Verbalized understanding.JAMIA LEE RN 01/20/2023 3:59 PM 79050-2Vowaemqdf encounter VnffBC2656-99-76V79:00:00Telephone encounter NoteTXT1.2.840.128670.1.13.104.2.7. 2.323847|[id number] for patient qwwu39827-6TlwaLG474781602Xhlklnmpk G Jesus [id number] 3HBWOOWPWVMDGSHGFYMCUTJ4660-37-53F5 6:00:001.2.840.996536.1.72.3.15|1.2 .840.040297.1.13.104.2.7.2.727879_1 [id number] Jamia Lee [facility] 2023-01-20 13:48:43 7314-46-17J35:48:43 Pt calling for results 32581-0Ptafnklcg encounter RfjdLB7104-01-52E56:49:04Telephone encounter NoteTXT1.2.840.701392.1.13.104.2.7. 2.783198|[id number] for patient nugo75699-5HqylGI971863231Hetxh [id number] 1BJCEVVDVQRORXFVNUNJWVS4573-24-01W7 3:49:041.2.840.753378.1.72.3.15|1.2 .840.032036.1.13.104.2.7.2.727879_1 [id number] Narda Dalton [facility]"
[2023-12-05] MEDS ORDERED: ACETAMINOPHEN 500 MG TAB ONE (16:30)
[2023-12-05 17:33] LABS: Blood O2 Saturation 67.2 % (92-98.5)
[2023-12-05 17:34] LABS: Arterial Blood Carboxyhemoglob 12.4 % (0-1.5); Blood Gas Oxyhemoglobin 57.5 % (94-97)
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
[2023-12-05 21:59] LABS: Arterial Blood Carboxyhemoglob 1.3 % (0-1.5); Blood Gas Oxyhemoglobin 46.6 % (94-97); Blood Gas THB 15.1 g/dl (12-18); Blood O2 Saturation 48.2 % (92-98.5)
[2023-12-05 22:52] VITALS: BP 112/71; TEMP 98.7; O2SAT 99
== END 2023-12-05 19:21 | disposition home or self-care (01) ==
LOC: ER 15:06
DX: T58.2X1A Toxic effect of carbon monoxide from incomplete combustion of other domestic fuels, accidental (unintentional), initial encounter (principal)
CPT/HCPCS: 82805; 99284